=== PATIENT | male | born 1960 | race American Indian/Alaskan Native ===

== ENCOUNTER 2022-06-12 16:40 | Inpatient (IN) | payer MEDICARE ==
[2022-06-12 18:58] LABS: Basophils # (Auto) 0.1 K/mm3 (0.0-0.1); Basophils % (Auto) 1.4 % (0.0-1.8); Eosinophils # (Auto) 0.2 K/mm3 (0.0-0.4); Eosinophils % (Auto) 4.2 % (0.0-4.3); Hematocrit 22.9 % (35.5-45.6); Hemoglobin 7.9 gm/dl (11.8-15.2); Lymphocytes # (Auto) 1.4 K/mm3 (1.2-5.4); Lymphocytes % (Auto) 27.7 % (13.4-35.0); Mean Corpuscular HGB Conc 34 % (32-34); Mean Corpuscular Volume 91 fl (84-94); Monocytes # (Auto) 0.3 K/mm3 (0.0-0.8); Monocytes % (Auto) 5.3 % (0.0-7.3); Platelet Count 210 K/mm3 (140-440); Red Blood Count 2.52 M/mm3 (3.65-5.03); Red Cell Distribution Width 17.9 % (13.2-15.2)
--- NOTE | 2022-06-12 19:14 | Emergency Department Report ---
ED General Adult HPI - General Chief complaint: Weakness Stated complaint: GENERAL WEAKNESS/LOW HEMOGLOBIN Time Seen by Provider: 06/12/22 18:48 Source: patient, EMS (Verbal report received from emergency medical services. EMS documentation not available at time of chart dictation ), RN notes reviewed, old records reviewed Mode of arrival: Stretcher Limitations: Physical Limitation - History of Present Illness Initial comments: The patient was evaluated in the emergency department for symptoms described in the history of present illness. He/she was evaluated in the context of the global COVID-19 pandemic, which necessitated consideration that the patient might be at risk for infection with the virus that causes COVID-19. Institutional protocols and algorithms that pertain to the evaluation of patients at risk for COVID-19 are in a state of rapid change based on information released by regulatory bodies including the CDC and federal and community health systems organizations. These policies and algorithms were followed during the patient's care in the emergency department. Please note that these policies, procedures and recommendations changed on a rapid basis. Nephrology: Dr. Rodriguez This is a 62-year-old gentleman with a history of end-stage renal disease on home hemodialysis, left upper extremity fistula, triple-vessel CABG, PAD, stroke, and chronic warfarin therapy. He presents to the ER today with multiple complaints, including abdominal cramping, black/dark stool, possible GI bleed, shortness of breath, malaise, fatigue, and report of his left upper extremity hemodialysis access fistula working improperly. No headache or neck pain. No chest pain. No vomiting. No diarrhea. No hematemesis. Produces scant urine. Reports compliance with his medications. -: Gradual, days(s) Consistency: constant Improves with: rest Worsens with: movement - Related Data Home Medications Medication Instructions Recorded Confirmed Last Taken Cinacalcet HCl [Sensipar] 60 mg PO DAILY 03/09/22 03/09/22 03/07/22 Clopidogrel [Plavix] 75 mg PO QDAY 03/09/22 03/09/22 Unknown Diclofenac 1% [Diclofenac 1% 2 gm TP QDAY 03/09/22 03/09/22 Unknown topical gel] Losartan [Cozaar] 100 mg PO BID 03/09/22 03/09/22 03/07/22 NIFEdipine [Nifedipine ER] 90 mg PO DAILY 03/09/22 03/09/22 03/07/22 Sevelamer Carbonate [Renvela] 800 mg PO TIDWM 03/09/22 03/09/22 03/07/22 Warfarin [Coumadin] 3.75 mg PO 2XW 03/09/22 03/09/22 Unknown Warfarin [Coumadin] 7.5 mg PO 5XW 03/09/22 03/09/22 03/07/22 labetaloL [Labetalol 200mg TAB] 200 mg PO BID 03/09/22 03/09/22 Unknown traMADoL [Ultram 50 MG tab] 50 mg PO Q6HR PRN 03/09/22 03/09/22 Unknown Previous Rx's Medication Instructions Recorded Last Taken Type Clopidogrel [Plavix] 75 mg PO QDAY tablet 03/10/22 Unknown Rx Gabapentin 300 mg PO TID capsule 03/10/22 Unknown Rx Losartan [Cozaar] 100 mg PO QDAY tablet 03/10/22 Unknown Rx NIFEdipine XL [Procardia Xl] 90 mg PO QDAY tablet 03/10/22 Unknown Rx Sevelamer Carbonate [Renvela] 2,400 mg PO AC tablet 03/10/22 Unknown Rx Warfarin [Coumadin] 7.5 mg PO ONCE@1700 tablet 03/10/22 Unknown Rx carvediloL [Coreg] 12.5 mg PO BID 30 Days #60 tablet 03/10/22 Unknown Rx Allergies Allergy/AdvReac Type Severity Reaction Status Date / Time Penicillins Allergy Hives Verified 03/08/22 17:44 ED Review of Systems ROS: Stated complaint: GENERAL WEAKNESS/LOW HEMOGLOBIN Other details as noted in HPI Constitutional: malaise. denies: fever Eyes: denies: eye discharge ENT: congestion Respiratory: shortness of breath, SOB with exertion, SOB at rest Cardiovascular: edema. denies: chest pain Gastrointestinal: as per HPI, melena. denies: hematemesis, hematochezia Genitourinary: denies: dysuria Musculoskeletal: denies: back pain Neurological: weakness Hematological/Lymphatic: denies: easy bleeding ED Past Medical Hx - Past Medical History Hx Hypertension: Yes Hx CVA: Yes Hx Heart Attack/AMI: Yes Hx Congestive Heart Failure: Yes Hx Renal Disease: Yes (peritoneal) - Surgical History Hx Open Heart Surgery: Yes (CABG) - Social History Smoking Status: Never Smoker - Medications Home Medications: Home Medications Medication Instructions Recorded Confirmed Last Taken Type Cinacalcet HCl [Sensipar] 60 mg PO DAILY 03/09/22 03/09/22 03/07/22 History Clopidogrel [Plavix] 75 mg PO QDAY 03/09/22 03/09/22 Unknown History Diclofenac 1% [Diclofenac 1% 2 gm TP QDAY 03/09/22 03/09/22 Unknown History topical gel] Losartan [Cozaar] 100 mg PO BID 03/09/22 03/09/22 03/07/22 History NIFEdipine [Nifedipine ER] 90 mg PO DAILY 03/09/22 03/09/22 03/07/22 History Sevelamer Carbonate [Renvela] 800 mg PO TIDWM 03/09/22 03/09/22 03/07/22 History Warfarin [Coumadin] 3.75 mg PO 2XW 03/09/22 03/09/22 Unknown History Warfarin [Coumadin] 7.5 mg PO 5XW 03/09/22 03/09/22 03/07/22 History labetaloL [Labetalol 200mg TAB] 200 mg PO BID 03/09/22 03/09/22 Unknown History traMADoL [Ultram 50 MG tab] 50 mg PO Q6HR PRN 03/09/22 03/09/22 Unknown History Clopidogrel [Plavix] 75 mg PO QDAY tablet 03/10/22 Unknown Rx Gabapentin 300 mg PO TID capsule 03/10/22 Unknown Rx Losartan [Cozaar] 100 mg PO QDAY tablet 03/10/22 Unknown Rx NIFEdipine XL [Procardia Xl] 90 mg PO QDAY tablet 03/10/22 Unknown Rx Sevelamer Carbonate [Renvela] 2,400 mg PO AC tablet 03/10/22 Unknown Rx Warfarin [Coumadin] 7.5 mg PO ONCE@1700 tablet 03/10/22 Unknown Rx carvediloL [Coreg] 12.5 mg PO BID 30 Days #60 tablet 03/10/22 Unknown Rx ED Physical Exam - General Limitations: Physical Limitation General appearance: alert, in no apparent distress - Head Head exam: Present: atraumatic, normocephalic - Eye Eye exam: Present: normal appearance, EOMI. Absent: nystagmus - ENT ENT exam: Present: normal exam, normal orophraynx, mucous membranes moist, normal external ear exam - Neck Neck exam: Present: normal inspection, full ROM. Absent: tenderness, meningismus - Respiratory Respiratory exam: Present: rales (Very faint rales are appreciated). Absent: respiratory distress - Cardiovascular Cardiovascular Exam: Present: regular rate, normal rhythm, systolic murmur, JVD. Absent: bradycardia, tachycardia, irregular rhythm, diastolic murmur, rubs, gallop - GI/Abdominal GI/Abdominal exam: Present: soft. Absent: distended, tenderness, guarding, rebound, rigid, pulsatile mass - Rectal Rectal exam: Present: normal inspection, normal rectal tone, other (Patient consents for digital rectal examination. No gross blood noted on rectal examination. Chaperoned by nurse Nazanin Mariscal). Absent: black stool, bloody stool, fecal impaction - Extremities Exam Extremities exam: Present: normal inspection (There is a left upper extremity fistula appreciated, with an appropriate thrill, without redness, pus or streaking), full ROM, other (2+ pulses noted in the bilateral upper and lower extremities. There is no palpable cord. negative Homans sign. Muscular compartments are soft. The pelvis is stable.). Absent: calf tenderness - Back Exam Back exam: Present: normal inspection. Absent: tenderness, CVA tenderness (R), CVA tenderness (L), paraspinal tenderness, vertebral tenderness - Neurological Exam Neurological exam: Present: alert, oriented X3, other (There is no facial droop. The tongue is midline. EOMI. Sensation intact to light touch in 4 extremities. 5/5 strength in 4 extremities) - Psychiatric Psychiatric exam: Present: flat affect - Skin Skin exam: Present: warm, dry, intact, normal color. Absent: rash ED Course Vital Signs 06/12/22 17:24 Temperature 98.8 F Pulse Rate 85 Respiratory 18 Rate Blood Pressure 165/82 [Left] O2 Sat by Pulse 97 Oximetry - Reevaluation(s) Reevaluation #1: 06/12/22 20:11 Differential diagnosis, including not limited to: Anemia, thrombocytopenia, GI bleed, azotemia, uremia, metabolic acidosis, congestive heart failure/fluid overload Fistula malfunction Electrolyte derangement, AAA, retroperitoneal hematoma Assessment and plan: 62-year-old gentleman with multiple complex past medical history and issues, presenting with multiple complaints. Complaining of black stool. He is also short of breath. He is found to have slightly worse anemia than baseline. No blood on rectal examination. Chest x-ray shows mild congestive heart failure/fluid overload. Also found to have essentially baseline renal function labs. Coagulation parameters pending. Administer high-dose Lasix, administer Protonix, and administer desmopressin. Obtain noncontrast CT scan of the abdomen pelvis. We will discussed with GI and nephrology on-call. Anticipate admission to the medical service. Left upper extremity fistula with an appropriate thrill, and a benign and unremarkable external appearance. Do not have access to hemodialysis access studies at this time. Defer to inpatient team to further evaluate. Patient will likely require admission. Reevaluation #2: 06/12/22 21:34 Patient resting comfortably in no acute distress. CT scan abdomen pelvis shows no evidence of retroperitoneal hematoma, or AAA. Hospital physicianAngel to admit to IMS - Consultations Consultation #1: 06/12/22 20:25 Discussed the patient's history, physical, laboratory studies and clinical impression with GI on-call, Dr. Mario. He is in agreement with the plan of care, and GI will follow in consultation. Consultation #2: 06/12/22 20:31 I discussed the patient's history, physical, laboratory studies and imaging studies and clinical impression with nephrology on-call, Dr. Avalos, she is in agreement with the plan of care, and her group will follow in consultation ED Medical Decision Making - Lab Data Result diagrams: 06/12/22 18:47 06/12/22 18:47 Vital Signs 06/12/22 17:24 Temperature 98.8 F Pulse Rate 85 Respiratory 18 Rate Blood Pressure 165/82 [Left] O2 Sat by Pulse 97 Oximetry Lab Results 06/12/22 06/12/22 Range/Units 18:47 18:47 WBC 5.0 (4.5-11.0) K/mm3 RBC 2.52 L (3.65-5.03) M/mm3 Hgb 7.9 L (11.8-15.2) gm/dl Hct 22.9 L (35.5-45.6) % MCV 91 (84-94) fl MCH 31 (28-32) pg MCHC 34 (32-34) % RDW 17.9 H (13.2-15.2) % Plt Count 210 (140-440) K/mm3 Lymph % (Auto) 27.7 (13.4-35.0) % [place] % (Auto) 5.3 (0.0-7.3) % Eos % (Auto) 4.2 (0.0-4.3) % Baso % (Auto) 1.4 (0.0-1.8) % Lymph # (Auto) 1.4 (1.2-5.4) K/mm3 [place] # (Auto) 0.3 (0.0-0.8) K/mm3 Eos # (Auto) 0.2 (0.0-0.4) K/mm3 Baso # (Auto) 0.1 (0.0-0.1) K/mm3 Seg Neutrophils % 61.4 (40.0-70.0) % Seg Neutrophils # 3.1 (1.8-7.7) K/mm3 Sodium 141 (137-145) mmol/L Potassium 3.4 L (3.6-5.0) mmol/L Chloride 100.9 (98-107) mmol/L Carbon Dioxide 22 (22-30) mmol/L Anion Gap 22 mmol/L BUN 55 H (9-20) mg/dL Creatinine 10.6 H (0.8-1.3) mg/dL Estimated GFR 6 ml/min BUN/Creatinine Ratio 5 % Glucose 88 (75-100) mg/dL Calcium 8.3 L (8.4-10.2) mg/dL Total Bilirubin 0.50 (0.1-1.2) mg/dL AST 11 (5-40) units/L ALT 10 (7-56) units/L Alkaline Phosphatase 125 (35-129) units/L Total Protein 6.4 (6.3-8.2) g/dL Albumin 4.4 (3.9-5) g/dL Albumin/Globulin Ratio 2.2 % - EKG Data -: EKG Interpreted by In EKG shows normal: sinus rhythm Rate: normal - EKG Data 06/12/22 20:44 The EKG is interpreted at 20: 35 Sinus rhythm, 83 bpm. Normal axis, normal P wave axis, left ventricular hypertrophy, PVC, first-degree AV block, motion artifact. No endorsement of chest pain. This is an abnormal EKG. This is not a STEMI - Radiology Data Radiology results: pending, report reviewed, image reviewed CHEST 1 VIEW 06/12/2022 6:42 PM INDICATION / CLINICAL INFORMATION: esrd. COMPARISON: 03/08/2022 FINDINGS: SUPPORT DEVICES: None. HEART / MEDIASTINUM: Cardiomegaly LUNGS / PLEURA: Mild pulmonary vascular indistinctness. No pneumothorax. ADDITIONAL FINDINGS: No significant additional findings. IMPRESSION: 1. Cardiomegaly and mild pulmonary edema. Signer Name: Vaughn Flannery DO Signed: 06/12/2022 6:47 PM Workstation Name: [facility] CT ABDOMEN AND PELVIS WITHOUT CONTRAST INDICATION / CLINICAL INFORMATION: Abdominal cramping, AAA, history of GI bleed, cou. TECHNIQUE: Axial CT images were obtained through the abdomen and pelvis without IV contrast. All CT scans at this location are performed using CT dose reduction for ALARA by means of automated exposure control. COMPARISON: CT of the chest dated 06/30/2012 FINDINGS: LOWER CHEST: Trace bilateral, right greater than left pleural effusi ons. There is bibasilar atelectasis. There is prominence of the secondary lobules suggesting pulmonary edema. AORTA / ARTERIES: Severe atherosclerotic calcification without acute abnormality. There is infrarenal endovascular stent terminating as bilateral common iliac stents. IVC / VEINS: No significant abnormality. LYMPH NODES: No significant adenopathy. COLON: Diverticulosis without acute inflammation. APPENDIX: Not visualized. STOMACH / SMALL BOWEL: There is mild duodenal wall thickening with periduodenal inflammation. PERITONEUM: No free fluid. No free air. No fluid collection. LIVER: No significant abnormality. GALLBLADDER: Increased attenuation suggesting sludge versus cholelithiasis. BILE DUCTS: No significant abnormality. PANCREAS: No significant abnormality. SPLEEN: No significant abnormality. ADRENALS: No significant abnormality. RIGHT KIDNEY / URETER: Atrophic and polycystic kidney. No hydronephrosis. LEFT KIDNEY / URETER: Atrophic and polycystic kidney. No hydronephrosis. There is a right lower quadrant transplanted kidney. There are multiple punctate nonobstructing stones within the transplanted kidney, measuring up to 0.3 cm. URINARY BLADDER: No significant abnormality. REPRODUCTIVE ORGANS: No significant abnormality. SKELETAL SYSTEM: No significant abnormality. ADDITIONAL FINDINGS: None. IMPRESSION: 1. Mild duodenal wall thickening with periduodenal inflammation suggesting duodenitis. 2. Additional findings above. Signer Name: Vaughn Marshall DO Prudencio Signed: 06/12/2022 8:08 PM Workstation Name: [facility] [employer] Critical Care Time: Yes Critical care time in (mins) excluding proc time.: 35 Critical care attestation.: If time is entered above; I have spent that time in minutes in the direct care of this critically ill patient, excluding procedure time. ED Disposition Clinical Impression: Dyspnea on exertion, Shortness of breath, Pulmonary vascular congestion, End- stage renal disease on hemodialysis, Abdominal discomfort, Anticoagulated, Anemia, Dark stools Disposition: 09 ADMITTED INPATIENT Is pt being admited?: Yes Does the pt Need Aspirin: No Condition: Good Referrals: BEVELRY SONI [Other] - 3-5 Days
--- NOTE | 2022-06-12 19:51 | XRay Report ---
CHEST 1 VIEW 06/12/2022 6:42 PM INDICATION / CLINICAL INFORMATION: esrd. COMPARISON: 03/08/2022 FINDINGS: SUPPORT DEVICES: None. HEART / MEDIASTINUM: Cardiomegaly LUNGS / PLEURA: Mild pulmonary vascular indistinctness. No pneumothorax. ADDITIONAL FINDINGS: No significant additional findings. IMPRESSION: 1. Cardiomegaly and mild pulmonary edema. Signer Name: Vaughn Flannery DO Signed: 06/12/2022 7:47 PM Workstation Name: [id number]
[2022-06-12 19:54] LABS: Albumin 4.4 g/dL (3.9-5); Calcium 8.3 mg/dL (8.4-10.2)
[2022-06-12] MEDS ORDERED: FUROSEMIDE 40 MG/4 ML INJ IV ONE (20:07)
[2022-06-12] MEDS ORDERED: PANTOPRAZOLE 40 MG INJ IV ONE (20:07)
[2022-06-12] MEDS ORDERED: SODIUM CHLORIDE 0.9% IV ONE (20:07)
[2022-06-12] MEDS ORDERED: DESMOPRESSIN ACETATE IV ONE (20:07)
[2022-06-12 20:13] LABS: INR 3.04 (0.87-1.13)
[2022-06-12 20:14] LABS: Partial Thromboplastin Time 45.9 Sec. (24.2-36.6)
[2022-06-12] MEDS ORDERED: SODIUM CHLORIDE 0.9% 500 ML 500 ML IV ONE (20:14)
--- NOTE | 2022-06-12 21:12 | Cat Scan Report ---
CT ABDOMEN AND PELVIS WITHOUT CONTRAST INDICATION / CLINICAL INFORMATION: Abdominal cramping, AAA, history of GI bleed, cou. TECHNIQUE: Axial CT images were obtained through the abdomen and pelvis without IV contrast. All CT scans at this location are performed using CT dose reduction for ALARA by means of automated exposure control. COMPARISON: CT of the chest dated 06/30/2012 FINDINGS: LOWER CHEST: Trace bilateral, right greater than left pleural effusions. There is bibasilar atelectas is. There is prominence of the secondary lobules suggesting pulmonary edema. AORTA / ARTERIES: Severe atherosclerotic calcification without acute abnormality. There is infrarenal endovascular stent terminating as bilateral common iliac stents. IVC / VEINS: No significant abnormality. LYMPH NODES: No significant adenopathy. COLON: Diverticulosis without acute inflammation. APPENDIX: Not visualized. STOMACH / SMALL BOWEL: There is mild duodenal wall thickening with periduodenal inflammation. PERITONEUM: No free fluid. No free air. No fluid collection. LIVER: No significant abnormality. GALLBLADDER: Increased attenuation suggesting sludge versus cholelithiasis. BILE DUCTS: No significant abnormality. PANCREAS: No significant abnormality. SPLEEN: No significant abnormality. ADRENALS: No significant abnormality. RIGHT KIDNEY / URETER: Atrophic and polycystic kidney. No hydronephrosis. LEFT KIDNEY / URETER: Atrophic and polycystic kidney. No hydronephrosis. There is a right lower quadrant transplanted kidney. There are multiple punctate nonobstructing stone s within the transplanted kidney, measuring up to 0.3 cm. URINARY BLADDER: No significant abnormality. REPRODUCTIVE ORGANS: No significant abnormality. SKELETAL SYSTEM: No significant abnormality. ADDITIONAL FINDINGS: None. IMPRESSION: 1. Mild duodenal wall thickening with periduodenal inflammation suggesting duodenitis. 2. Additional findings above. Signer Name: Vaughn Flannery DO Signed: 06/12/2022 9:08 PM Workstation Name: [id number]
[2022-06-12] MEDS ORDERED: ONDANSETRON 4 MG/2 ML INJ IV PRN (22:25)
[2022-06-12] MEDS ORDERED: MORPHINE 4 MG/1 ML INJ IV PRN (22:25)
[2022-06-12] MEDS ORDERED: ACETAMINOPHEN 325 MG TAB PO PRN (22:25)
--- NOTE | 2022-06-12 22:35 | History and Physical Report ---
History of Present Illness Date of examination: 06/12/22 Date of admission: 06/12/22 Chief complaint: Generalized weakness History of present illness: 62-year-old gentleman with a history of end-stage renal disease on home hemodialysis, left upper extremity fistula, triple-vessel CABG, PAD, stroke, and chronic warfarin therapy was brought to the ER today with multiple complaints, including abdominal cramping, black/dark stool, possible GI bleed, shortness of breath, malaise, fatigue, and report of his left upper extremity hemodialysis access fistula working improperly. In the emergency room patient is found to have a hemoglobin of 7.9 and hematocrit 22.9. PT 36.3 INR 3.04, BUN 55 creatinine 10.6, potassium 3.4 and proBNP [id number]. Chest x-ray shows mild congestive heart failure/fluid overload. Discussed the patient's history, physical, laboratory studies and clinical impression with GI on-call, Dr. Mario and nephrology for evaluation and treatment Past History Past Medical History: acute [place], ESRD, heart failure, hypertension, stroke, other Past Surgical History: CABG Social history: no significant social history Family history: hypertension (Peritoneal dialysis) Medications and Allergies Allergies Allergy/AdvReac Type Severity Reaction Status Date / Time Penicillins Allergy Hives Verified 03/08/22 17:44 Home Medications Medication Instructions Recorded Confirmed Last Taken Type Cinacalcet HCl [Sensipar] 60 mg PO DAILY 03/09/22 03/09/22 03/07/22 History Clopidogrel [Plavix] 75 mg PO QDAY 03/09/22 03/09/22 Unknown History Diclofenac 1% [Diclofenac 1% 2 gm TP QDAY 03/09/22 03/09/22 Unknown History topical gel] Losartan [Cozaar] 100 mg PO BID 03/09/22 03/09/22 03/07/22 History NIFEdipine [Nifedipine ER] 90 mg PO DAILY 03/09/22 03/09/22 03/07/22 History Sevelamer Carbonate [Renvela] 800 mg PO TIDWM 03/09/22 03/09/22 03/07/22 History Warfarin [Coumadin] 3.75 mg PO 2XW 03/09/22 03/09/22 Unknown History Warfarin [Coumadin] 7.5 mg PO 5XW 03/09/22 03/09/22 03/07/22 History labetaloL [Labetalol 200mg TAB] 200 mg PO BID 03/09/22 03/09/22 Unknown History traMADoL [Ultram 50 MG tab] 50 mg PO Q6HR PRN 03/09/22 03/09/22 Unknown History Clopidogrel [Plavix] 75 mg PO QDAY tablet 03/10/22 Unknown Rx Gabapentin 300 mg PO TID capsule 03/10/22 Unknown Rx Losartan [Cozaar] 100 mg PO QDAY tablet 03/10/22 Unknown Rx NIFEdipine XL [Procardia Xl] 90 mg PO QDAY tablet 03/10/22 Unknown Rx Sevelamer Carbonate [Renvela] 2,400 mg PO AC tablet 03/10/22 Unknown Rx Warfarin [Coumadin] 7.5 mg PO ONCE@1700 tablet 03/10/22 Unknown Rx carvediloL [Coreg] 12.5 mg PO BID 30 Days #60 tablet 03/10/22 Unknown Rx Active Meds: Active Medications Acetaminophen (Acetaminophen 325 Mg Tab) 650 mg PO Q4H PRN PRN Reason: Pain MILD(1-3)/Fever >100.5/[place] Carvedilol (Carvedilol 12.5 Mg Tab) 12.5 mg PO BID ROMY Gabapentin (Gabapentin 300 Mg Cap) 300 mg PO TID ROMY Labetalol HCl (Labetalol 200 Mg Tab) 200 mg PO BID ROMY Losartan Potassium (Losartan 50 Mg Tab) 100 mg PO QDAY [facility] Miscellaneous Medication (Cinacalcet Hcl [Sensipar]) 60 mg PO DAILY [facility] Miscellaneous Medication (Nifedipine [Nifedipine Er]) 90 mg PO DAILY ROMY Morphine Sulfate (Morphine 2 Mg/1 Ml Inj) 2 mg IV Q4H PRN PRN Reason: Pain, Moderate (4-6) Morphine Sulfate (Morphine 4 Mg/1 Ml Inj) 4 mg IV Q4H PRN PRN Reason: Pain , Severe (7-10) Ondansetron HCl (Ondansetron 4 Mg/2 Ml Inj) 4 mg IV Q8H PRN PRN Reason: Nausea And Vomiting Pantoprazole Sodium (Pantoprazole 40 Mg Inj) 40 mg IV BID ROMY Sevelamer Carbonate (Sevelamer Carbonate 800 Mg Tab) 800 mg PO TIDWM [facility]Y Sodium Chloride (Sodium Chloride 0.9% 10 Ml Flush Syringe) 10 ml IV BID ROMY Sodium Chloride (Sodium Chloride 0.9% 10 Ml Flush Syringe) 10 ml IV PRN PRN PRN Reason: LINE FLUSH Review of Systems Constitutional: fatigue (Melenaabdominal cramping, black/dark stool, possible GI bleed, shortness of breath, malaise, fatigue, and report of his left upper extremity hemodialysis access fistula working improperly.), weakness, malaise, other (Low hemoglobin) Exam - Constitutional Vitals: Temp Pulse Resp BP Pulse Ox 98.8 F 85 18 165/82 97 06/12/22 17:24 06/12/22 17:24 06/12/22 17:24 06/12/22 17:24 06/12/22 17:24 General appearance: Present: no acute distress, well-nourished - EENT Eyes: Present: PERRL ENT: hearing intact, clear oral mucosa - Neck Neck: Present: supple, normal ROM - Respiratory Respiratory effort: normal Respiratory: bilateral: CTA - Cardiovascular Heart Sounds: Present: S1 & S2. Absent: rub, click - Extremities Extremities: pulses symmetrical, No edema Peripheral Pulses: within normal limits - Abdominal General gastrointestinal: Present: soft, non-tender, non-distended, normal bowel sounds Male genitourinary: Present: normal - Integumentary Integumentary: Present: clear, warm, dry - Musculoskeletal Musculoskeletal: gait normal, strength equal bilaterally - Psychiatric Psychiatric: appropriate mood/affect, intact judgment & insight - Neurologic Neurologic: CNII-XII intact, moves all extremities Results - Labs CBC & Chem 7: 06/12/22 18:47 06/12/22 18:47 Labs: Laboratory Last Values WBC 5.0 K/mm3 (4.5-11.0) 06/12/22 18:47 RBC 2.52 M/mm3 (3.65-5.03) L 06/12/22 18:47 Hgb 7.9 gm/dl (11.8-15.2) L 06/12/22 18:47 Hct 22.9 % (35.5-45.6) L 06/12/22 18:47 MCV 91 fl (84-94) 06/12/22 18:47 MCH 31 pg (28-32) 06/12/22 18:47 MCHC 34 % (32-34) 06/12/22 18:47 RDW 17.9 % (13.2-15.2) H 06/12/22 18:47 Plt Count 210 K/mm3 (140-440) 06/12/22 18:47 Lymph % (Auto) 27.7 % (13.4-35.0) 06/12/22 18:47 [place] % (Auto) 5.3 % (0.0-7.3) 06/12/22 18:47 Eos % (Auto) 4.2 % (0.0-4.3) 06/12/22 18:47 Baso % (Auto) 1.4 % (0.0-1.8) 06/12/22 18:47 Lymph # (Auto) 1.4 K/mm3 (1.2-5.4) 06/12/22 18:47 [place] # (Auto) 0.3 K/mm3 (0.0-0.8) 06/12/22 18:47 Eos # (Auto) 0.2 K/mm3 (0.0-0.4) 06/12/22 18:47 Baso # (Auto) 0.1 K/mm3 (0.0-0.1) 06/12/22 18:47 Seg Neutrophils % 61.4 % (40.0-70.0) 06/12/22 18:47 Seg Neutrophils # 3.1 K/mm3 (1.8-7.7) 06/12/22 18:47 PT 36.3 Sec. (12.2-14.9) H 06/12/22 19:43 INR 3.04 (0.87-1.13) H 06/12/22 19:43 APTT 45.9 Sec. (24.2-36.6) H 06/12/22 19:43 Sodium 141 mmol/L (137-145) 06/12/22 18:47 Potassium 3.4 mmol/L (3.6-5.0) L 06/12/22 18:47 Chloride 100.9 mmol/L (98-107) 06/12/22 18:47 Carbon Dioxide 22 mmol/L (22-30) 06/12/22 18:47 Anion Gap 22 mmol/L 06/12/22 18:47 BUN 55 mg/dL (9-20) H 06/12/22 18:47 Creatinine 10.6 mg/dL (0.8-1.3) H 06/12/22 18:47 Estimated GFR 6 ml/min 06/12/22 18:47 BUN/Creatinine Ratio 5 % 06/12/22 18:47 Glucose 88 mg/dL (75-100) 06/12/22 18:47 Calcium 8.3 mg/dL (8.4-10.2) L 06/12/22 18:47 Total Bilirubin 0.50 mg/dL (0.1-1.2) 06/12/22 18:47 AST 11 units/L (5-40) 06/12/22 18:47 ALT 10 units/L (7-56) 06/12/22 18:47 Alkaline Phosphatase 125 units/L (35-129) 06/12/22 18:47 NT-Pro-B Natriuret Pep 80395 pg/mL (0-900) H 06/12/22 18:46 Total Protein 6.4 g/dL (6.3-8.2) 06/12/22 18:47 Albumin 4.4 g/dL (3.9-5) 06/12/22 18:47 Albumin/Globulin Ratio 2.2 % 06/12/22 18:47 Blood Type A POSITIVE 06/12/22 19:50 Antibody Screen Negative 06/12/22 19:50 Crossmatch See Detail 06/12/22 19:50 Microbiology: Microbiology 06/12/22 20:00 Stool - Stool Aspirate Stool Occult Blood ([place]) - Final - Imaging and Cardiology Chest x-ray: report reviewed CT scan - abdomen: report reviewed Assessment and Plan VTE prophylaxis?: Mechanical Plan of care discussed with patient/family: Yes - Patient Problems (1) Dark stools Current Visit: Yes Status: Acute Plan to address problem: Admit the patient to the medical telemetry. NPO. Protonix 40 mg IV every 12 hours. Will consult GI for evaluation. Recheck CBC BMP in the morning. Continue home medication (2) Dyspnea on exertion Current Visit: Yes Status: Acute Plan to address problem: Oxygen via nasal cannula 3 L/min. DuoNeb via nebulizer every 4 hours. Albuterol via nebulizer every 4 hours as needed. Continue the home medication (3) Pulmonary vascular congestion Current Visit: Yes Status: Acute Plan to address problem: Oxygen via nasal cannula 3 L/min. DuoNeb via nebulizer every 4 hours. Albute rol via nebulizer every 4 hours as needed. Continue the home medication. We will consult nephrology for dialysis (4) End-stage renal disease on hemodialysis Current Visit: Yes Status: Chronic Plan to address problem: Avoid nephrotoxic drug. Renally dose medication. Reconsult nephrology for dialysis. Recheck BMP in the morning (5) CVA (cerebral vascular accident) Current Visit: No Status: Acute Plan to address problem: Stable. We continue the home medication. Outpatient follow-up with neurology (6) Hx of CABG Current Visit: No Status: Acute Plan to address problem: Stable. We will continue the home cardiac medication outpatient follow-up with cardiology (7) Hypertension Current Visit: No Status: Chronic Plan to address problem: Coreg 12.5 mg p.o. twice daily. Labetalol 200 mg p.o. twice daily. Losartan 100 mg p.o. daily (8) Anemia Current Visit: Yes Status: Acute Plan to address problem: Protonix 40 mg IV every 12 hours. Will consult GI for evaluation. Recheck CBC in the morning if needed will transfuse the patient (9) DVT prophylaxis Current Visit: No Status: Acute Plan to address problem: SCD for DVT prophylaxis. Protonix 40 mg IV every 12 hours for GI prophylaxis. Patient is a full code
[2022-06-13] MEDS: carvediloL 12.5 MG TAB PO SCH ×2 (09:37→22:04)
[2022-06-13] MEDS: LOSARTAN 50 MG TAB PO SCH (09:48)
[2022-06-13] MEDS: SEVELAMER CARBONATE 800 MG TAB PO SCH ×3 (09:48→18:12)
[2022-06-13] MEDS: CINACALCET 30 MG TAB PO SCH (09:48)
[2022-06-13] MEDS: GABAPENTIN 300 MG CAP PO SCH ×3 (09:48→19:54)
[2022-06-13] MEDS: NIFEdipine XL 90 MG TAB PO SCH (09:49)
--- NOTE | 2022-06-13 09:50 | Gastroenterology Consultation ---
History of Present Illness - Reason for Consult Consult date: 06/13/22 Dark Stools Requesting physician: GENEVA RASHEED - History of Present Illness The patient is a 62 yo male admitted with A on C anemia, dark stools, and missed HD. He was admitted here recently for CHF flare/volume overload, and was noted to have anemia of chronic disease as well. His hgb is currently 7.4 and was 8.8 last admit. He says the dark stools are intermittent, and there is no N/ V/severe abdominal pain/hematemesis. He has no hx of PUD, and has never had an EGD or colonoscopy. He has a hx of a kidney transplant in 2003 but this eventually failed, and has been back on HD since 2019. He was being set up for home HD, but last session was Wednesday, and he has had trouble with his AVG working. He is on dual coumadin and plavix, but denies NSAIDs. He has mild intermittent indigestion, but does not take a daily med for this. It is unknown if he takes daily epogen or procrit. Past History Past Medical History: acute [place], ESRD, heart failure, hypertension, stroke, other Past Surgical History: CABG, Other (Kidney transplant (2003; failed 2018)) Social history: no significant social history, lives with family. denies: alcohol abuse, prescription drug abuse Family history: hypertension (Peritoneal dialysis) Medications and Allergies Allergies Allergy/AdvReac Type Severity Reaction Status Date / Time Penicillins Allergy Hives Verified 03/08/22 17:44 Home Medications Medication Instructions Recorded Confirmed Last Taken Type Cinacalcet HCl [Sensipar] 60 mg PO DAILY 03/09/22 03/09/22 03/07/22 History Clopidogrel [Plavix] 75 mg PO QDAY 03/09/22 03/09/22 Unknown History Diclofenac 1% [Diclofenac 1% 2 gm TP QDAY 03/09/22 03/09/22 Unknown History topical gel] Losartan [Cozaar] 100 mg PO BID 03/09/22 03/09/22 03/07/22 History NIFEdipine [Nifedipine ER] 90 mg PO DAILY 03/09/22 03/09/22 03/07/22 History Sevelamer Carbonate [Renvela] 800 mg PO TIDWM 03/09/22 03/09/22 03/07/22 History Warfarin [Coumadin] 3.75 mg PO 2XW 03/09/22 03/09/22 Unknown History Warfarin [Coumadin] 7.5 mg PO 5XW 03/09/22 03/09/22 03/07/22 History labetaloL [Labetalol 200mg TAB] 200 mg PO BID 03/09/22 03/09/22 Unknown History traMADoL [Ultram 50 MG tab] 50 mg PO Q6HR PRN 03/09/22 03/09/22 Unknown History Clopidogrel [Plavix] 75 mg PO QDAY tablet 03/10/22 Unknown Rx Gabapentin 300 mg PO TID capsule 03/10/22 Unknown Rx Losartan [Cozaar] 100 mg PO QDAY tablet 03/10/22 Unknown Rx NIFEdipine XL [Procardia Xl] 90 mg PO QDAY tablet 03/10/22 Unknown Rx Sevelamer Carbonate [Renvela] 2,400 mg PO AC tablet 03/10/22 Unknown Rx Warfarin [Coumadin] 7.5 mg PO ONCE@1700 tablet 03/10/22 Unknown Rx carvediloL [Coreg] 12.5 mg PO BID 30 Days #60 tablet 03/10/22 Unknown Rx Active Meds: Active Medications Acetaminophen (Acetaminophen 325 Mg Tab) 650 mg PO Q4H PRN PRN Reason: Pain MILD(1-3)/Fever >100.5/[place] Calcitriol (Calcitriol 0.25 Mcg Cap) 0.25 mcg PO QDAY [facility] Carvedilol (Carvedilol 12.5 Mg Tab) 12.5 mg PO BID ROMY Cinacalcet (Cinacalcet 30 Mg Tab) 60 mg PO QDAY [facility] Gabapentin (Gabapentin 300 Mg Cap) 300 mg PO TID ROMY Labetalol HCl (Labetalol 200 Mg Tab) 200 mg PO BID ROMY Losartan Potassium (Losartan 50 Mg Tab) 100 mg PO QDAY [facility] Morphine Sulfate (Morphine 2 Mg/1 Ml Inj) 2 mg IV Q4H PRN PRN Reason: Pain, Moderate (4-6) Morphine Sulfate (Morphine 4 Mg/1 Ml Inj) 4 mg IV Q4H PRN PRN Reason: Pain , Severe (7-10) Nifedipine (Nifedipine Xl 90 Mg Tab) 90 mg PO QDAY [facility] Ondansetron HCl (Ondansetron 4 Mg/2 Ml Inj) 4 mg IV Q8H PRN PRN Reason: Nausea And Vomiting Pantoprazole Sodium (Pantoprazole 40 Mg Inj) 40 mg IV BID ROMY Sevelamer Carbonate (Sevelamer Carbonate 800 Mg Tab) 800 mg PO TIDWM [facility] Sodium Chloride (Sodium Chloride 0.9% 10 Ml Flush Syringe) 10 ml IV BID ROMY Sodium Chloride (Sodium Chloride 0.9% 10 Ml Flush Syringe) 10 ml IV PRN PRN PRN Reason: LINE FLUSH I HAVE REVIEWED AND RECONCILED MEDICATIONS Review of Systems - Review of Systems All systems: negative (as noted in the HPI) Exam - Constitutional Vital Signs: Temp Pulse Resp BP Pulse Ox 98.3 F 86 18 189/103 99 06/13/22 09:32 06/13/22 09:32 06/13/22 09:32 06/13/22 09:32 06/13/22 09:32 General appearance: no acute distress - EENT Eyes: PERRL, EOM intact ENT: hearing intact, clear oral mucosa - Neck Neck: supple, normal ROM - Respiratory Respiratory effort: normal Respiratory: bilateral: CTA - Cardiovascular Rhythm: regular Heart Sounds: Present: S1 & S2 Extremities: no ischemia Extremity abnormal: edema (1+ pedal edema), other (AVG with thrill in LUE) - Gastrointestinal General gastrointestinal: Present: soft, non-tender, non-distended - Integumentary Integumentary: Present: clear, warm, dry - Neurologic Neurological: alert and oriented x3 - Labs CBC & Chem 7: 06/12/22 18:47 06/12/22 18:47 Lab Results: Laboratory Results - last 24 hr 06/12/22 06/12/22 06/12/22 18:46 18:47 18:47 WBC 5.0 RBC 2.52 L Hgb 7.9 L Hct 22.9 L MCV 91 MCH 31 MCHC 34 RDW 17.9 H Plt Count 210 Lymph % (Auto) 27.7 [place] % (Auto) 5.3 Eos % (Auto) 4.2 Baso % (Auto) 1.4 Lymph # (Auto) 1.4 [place] # (Auto) 0.3 Eos # (Auto) 0.2 Baso # (Auto) 0.1 Seg Neutrophils % 61.4 Seg Neutrophils # 3.1 PT INR APTT Sodium 141 Potassium 3.4 L Chloride 100.9 Carbon Dioxide 22 Anion Gap 22 BUN 55 H Creatinine 10.6 H Estimated GFR 6 BUN/Creatinine Ratio 5 Glucose 88 Calcium 8.3 L Total Bilirubin 0.50 AST 11 ALT 10 Alkaline Phosphatase 125 NT-Pro-B Natriuret Pep 78603 H Total Protein 6.4 Albumin 4.4 Albumin/Globulin Ratio 2.2 Blood Type Antibody Screen Crossmatch 06/12/22 06/12/22 19:43 19:50 WBC RBC Hgb Hct MCV MCH MCHC RDW Plt Count Lymph % (Auto) [place] % (Auto) Eos % (Auto) Baso % (Auto) Lymph # (Auto) [place] # (Auto) Eos # (Auto) Baso # (Auto) Seg Neutrophils % Seg Neutrophils # PT 36.3 H INR 3.04 H APTT 45.9 H Sodium Potassium Chloride Carbon Dioxide Anion Gap BUN Creatinine Estimated GFR BUN/Creatinine Ratio Glucose Calcium Total Bilirubin AST ALT Alkaline Phosphatase NT-Pro-B Natriuret Pep Total Protein Albumin Albumin/Globulin Ratio Blood Type A POSITIVE Antibody Screen Negative Crossmatch See Detail Assessment and Plan - Patient Problems (1) Symptomatic anemia Current Visit: Yes Status: Acute Plan to address problem: - I suspect anemia of chronic disease, but given the severity, he needs an EGD/colonoscopy. - He has significant cardiomyopathy (EF 30%), missed HD, and fluid overload, as well as coagulopathy from meds; will defer endoscopy at present. - Plan hold coumadin and ASA, resume HD here, and EGD/colon Wednesday if st abilized. - Transfuse as needed. - No gross blood loss or hematemesis; VSS; PO protonix is oK.
[2022-06-13] MEDS ORDERED: CINACALCET HCL 60 MG PO SCH (10:00)
[2022-06-13] MEDS ORDERED: NON-FORMULARY EACH (Nifedipine [Nifedipine Er] 90 MG Tablet.Er) PO SCH (10:00)
[2022-06-13] MEDS ORDERED: PANTOPRAZOLE 40 MG INJ IV SCH (10:00)
[2022-06-13] MEDS: MORPHINE 2 MG/1 ML INJ IV PRN ×2 (12:05→18:15)
[2022-06-13] MEDS: CALCITRIOL 0.25 MCG CAP PO SCH (12:06)
[2022-06-13] MEDS: PANTOPRAZOLE 40 MG TAB PO SCH (12:08)
[2022-06-13] MEDS ORDERED: SODIUM CHLORIDE 0.9% 100 ML IV PRN (13:12)
--- NOTE | 2022-06-13 13:12 | Consultation ---
History of Present Illness - Reason for Consult Consult date: 06/13/22 end stage renal disease - History of Present Illness Mr. Cochran is a 62yo with ESRD on home hemodialysis, CAD s/p CAB, PAD and CVA who presented to the ED with fatigue. He reports worsening fatigue and intermittent MORALES. He reports that he recently transferred from [facility] HD to home HD. Since change to home HD appx 1 month ago, he was unable to receive Micera for anemia management. He recently received Micera on Wednesday. He also reports that he is s/p fistulogram/angioplasty on Wednesday. However, he reports that on Wednesday, his dialysis physician [facility] was unable to cannulate his access. Past History Past Medical History: acute [place], ESRD, heart failure, hypertension, stroke, other Past Surgical History: CABG, Other (Kidney transplant (2003; failed 2018)) Social history: no significant social history, lives with family. denies: alcohol abuse, prescription drug abuse Family history: hypertension (Peritoneal dialysis) Medications and Allergies Allergies Allergy/AdvReac Type Severity Reaction Status Date / Time Penicillins Allergy Hives Verified 03/08/22 17:44 Home Medications Medication Instructions Recorded Confirmed Last Taken Type Cinacalcet HCl [Sensipar] 60 mg PO DAILY 03/09/22 03/09/22 03/07/22 History Clopidogrel [Plavix] 75 mg PO QDAY 03/09/22 03/09/22 Unknown History Diclofenac 1% [Diclofenac 1% 2 gm TP QDAY 03/09/22 03/09/22 Unknown History topical gel] Losartan [Cozaar] 100 mg PO BID 03/09/22 03/09/22 03/07/22 History NIFEdipine [Nifedipine ER] 90 mg PO DAILY 03/09/22 03/09/22 03/07/22 History Sevelamer Carbonate [Renvela] 800 mg PO TIDWM 03/09/22 03/09/22 03/07/22 History Warfarin [Coumadin] 3.75 mg PO 2XW 03/09/22 03/09/22 Unknown History Warfarin [Coumadin] 7.5 mg PO 5XW 03/09/22 03/09/22 03/07/22 History labetaloL [Labetalol 200mg TAB] 200 mg PO BID 03/09/22 03/09/22 Unknown History traMADoL [Ultram 50 MG tab] 50 mg PO Q6HR PRN 03/09/22 03/09/22 Unknown History Clopidogrel [Plavix] 75 mg PO QDAY tablet 03/10/22 Unknown Rx Gabapentin 300 mg PO TID capsule 03/10/22 Unknown Rx Losartan [Cozaar] 100 mg PO QDAY tablet 03/10/22 Unknown Rx NIFEdipine XL [Procardia Xl] 90 mg PO QDAY tablet 03/10/22 Unknown Rx Sevelamer Carbonate [Renvela] 2,400 mg PO AC tablet 03/10/22 Unknown Rx Warfarin [Coumadin] 7.5 mg PO ONCE@1700 tablet 03/10/22 Unknown Rx carvediloL [Coreg] 12.5 mg PO BID 30 Days #60 tablet 03/10/22 Unknown Rx Active Meds: Active Medications Acetaminophen (Acetaminophen 325 Mg Tab) 650 mg PO Q4H PRN PRN Reason: Pain MILD(1-3)/Fever >100.5/[place] Calcitriol (Calcitriol 0.25 Mcg Cap) 0.25 mcg PO QDAY [facility] Last Admin: 06/13/22 12:06 Dose: 0.25 mcg Carvedilol (Carvedilol 12.5 Mg Tab) 12.5 mg PO BID [facility] Last Admin: 06/13/22 09:37 Dose: Not Given Cinacalcet (Cinacalcet 30 Mg Tab) 60 mg PO QDAY [facility] Last Admin: 06/13/22 09:48 Dose: 60 mg Gabapentin (Gabapentin 300 Mg Cap) 300 mg PO TID [facility] Last Admin: 06/13/22 09:48 Dose: 300 mg Labetalol HCl (Labetalol 200 Mg Tab) 200 mg PO BID [facility] Last Admin: 06/13/22 09:49 Dose: 200 mg Losartan Potassium (Losartan 50 Mg Tab) 100 mg PO QDAY [facility] Last Admin: 06/13/22 09:48 Dose: 100 mg Morphine Sulfate (Morphine 2 Mg/1 Ml Inj) 2 mg IV Q4H PRN PRN Reason: Pain, Moderate (4-6) Last Admin: 06/13/22 12:05 Dose: 2 mg Morphine Sulfate (Morphine 4 Mg/1 Ml Inj) 4 mg IV Q4H PRN PRN Reason: Pain , Severe (7-10) Nifedipine (Nifedipine Xl 90 Mg Tab) 90 mg PO QDAY [facility] Last Admin: 06/13/22 09:49 Dose: 90 mg Ondansetron HCl (Ondansetron 4 Mg/2 Ml Inj) 4 mg IV Q8H PRN PRN Reason: Nausea And Vomiting Pantoprazole Sodium (Pantoprazole 40 Mg Tab) 40 mg PO QDAC [facility] Last Admin: 06/13/22 12:08 Dose: Not Given Sevelamer Carbonate (Sevelamer Carbonate 800 Mg Tab) 800 mg PO TIDWM [facility] Last Admin: 06/13/22 12:06 Dose: 800 mg Sodium Chloride (Sodium Chloride 0.9% 10 Ml Flush Syringe) 10 ml IV BID [facility] Last Admin: 06/13/22 09:49 Dose: 10 ml Sodium Chloride (Sodium Chloride 0.9% 10 Ml Flush Syringe) 10 ml IV PRN PRN PRN Reason: LINE FLUSH Review of Systems All systems: negative Exam - Vital Signs Vital signs: Vital Signs Temp Pulse Resp BP Pulse Ox 98.8 F 85 18 165/82 97 06/12/22 17:24 06/12/22 17:24 06/12/22 17:24 06/12/22 17:24 06/12/22 17:24 - General Appearance General appearance: well-developed, well-nourished EENT: ATNC Respiratory: Clear to Ascultation Heart: regular, S1S2 Gastrointestinal: Present: normal. Absent: distended, masses Integumentary: warm and dry Neurologic: alert and oriented x3 Psychiatric: cooperative Results - Lab Results 06/13/22 12:33 06/13/22 12:33 Most recent lab results Calcium 8.3 mg/dL (8.4-10.2) L 06/12/22 18:47 Assessment and Plan Impression: * End stage renal disease * Symptomatic anemia secondary to lack of SHASHANK vs GI loss * Hypertension * Secondary hyperparathyroidism Plan: * Hemodialysis today * UF as tolerated * Epogen TIW prn - will order 10,000 units * Renal diet * Dose medications for renal function * GI recommendations reviewed - note plans for EGD and colonoscopy on Wednesday * Transfuse pRBC prn
[2022-06-13 13:18] LABS: Basophils # (Auto) 0.1 K/mm3 (0.0-0.1); Eosinophils # (Auto) 0.2 K/mm3 (0.0-0.4); Eosinophils % (Auto) 3.1 % (0.0-4.3); Hematocrit 26.8 % (35.5-45.6); Hemoglobin 9.1 gm/dl (11.8-15.2); Lymphocytes # (Auto) 1.3 K/mm3 (1.2-5.4); Lymphocytes % (Auto) 25.5 % (13.4-35.0); Mean Corpuscular HGB Conc 34 % (32-34); Mean Corpuscular Volume 91 fl (84-94); Monocytes # (Auto) 0.2 K/mm3 (0.0-0.8); Monocytes % (Auto) 4.1 % (0.0-7.3); Platelet Count 229 K/mm3 (140-440); Red Blood Count 2.97 M/mm3 (3.65-5.03); Red Cell Distribution Width 17.6 % (13.2-15.2)
[2022-06-13 13:24] LABS: Calcium 8.8 mg/dL (8.4-10.2)
--- NOTE | 2022-06-13 14:06 | Progress Note ---
Assessment and Plan Assessment and plan: #Melena Hemoglobin 7.9--> 9.1 (on presentation). Received 1 unit packed RBC. Continue IV Protonix 40 mg twice daily and renal diet. Gastroenterology consulted; appreciate recs. Patient will not obtain colonoscopy any earlier than Wednesday. #ESRD on hemodialysis #Volume overload #Uremia -Access: Right upper extremity fistulogram -Outpatient schedule: Unknown -HD center: Unknown -Nephrology consulted; appreciate recs. Planning for hemodialysis today (06/13/2022) -Renally dose medications and avoid nephrotoxic drugs. Renal diet. #Depression Consulting [facility]; pending recs #Hypertension - home medications: Losartan 100 mg daily, Coreg 12.5 mg daily, labetalol 200 mg daily - current medications: Losartan 100 mg daily, Coreg 12.5 mg daily, labetalol 200 mg daily - SBP goal <160 and DBP goal <90 while inpatient - continue to monitor #History of acute ischemic CVA Continue goal-directed therapy #History of CABG Continue goal-directed therapy #Likely anemia of chronic disease Hemoglobin 7.9 Status post 1 unit packed RBC transfusion on admission. Transfuse if hemoglobin becomes <7 or patient become symptomatic. Starting calcitriol 0.5 mg daily. #Morbid obesity #Weight loss counseling #Exercise counseling - BMI 57.4 - Counseled patient on the importance of weight loss, incorporating exercise, and dietary changes (lean meats, fresh fruits and vegetables, and water intake). Patient expresses understanding. - Time: +15 min #Advanced care planning -Disease education conducted, care plan discussed, diagnoses discussed, prognosis discussed, and patient acknowledges understanding with care plan -Time: +30 min Disposition Plan: Continue medical management Total Time Spent with Patient (Minutes): 45 minutes History Interval history: No acute events overnight. Hospitalist Physical - Constitutional Vitals: Temp Pulse Resp BP Pulse Ox 98.3 F 86 18 189/103 98 06/13/22 09:32 06/13/22 09:32 06/13/22 09:32 06/13/22 09:32 06/13/22 10:44 General appearance: Present: no acute distress, well-nourished, obese - EENT Eyes: Present: PERRL, EOM intact ENT: hearing intact, clear oral mucosa, dentition normal - Neck Neck: Present: supple, normal ROM - Respiratory Respiratory effort: normal Respiratory: bilateral: CTA - Cardiovascular Rhythm: regular Heart Sounds: Present: S1 & S2 - Extremities Extremities: no ischemia, pulses intact, pulses symmetrical, No edema, normal temperature, normal color Peripheral Pulses: within normal limits - Abdominal General gastrointestinal: soft, non-tender, non-distended, normal bowel sounds - Integumentary Integumentary: Present: clear, warm, dry - Psychiatric Psychiatric: memory intact, cooperative, depressed - Neurologic Neurologic: CNII-XII intact, moves all extremities - Allied Health Allied health notes reviewed: nursing Results - Labs CBC & Chem 7: 06/13/22 12:33 06/13/22 12:33 Labs: Laboratory Last Values WBC 5.2 K/mm3 (4.5-11.0) 06/13/22 12:33 RBC 2.97 M/mm3 (3.65-5.03) L 06/13/22 12:33 Hgb 9.1 gm/dl (11.8-15.2) L 06/13/22 12:33 Hct 26.8 % (35.5-45.6) L 06/13/22 12:33 MCV 91 fl (84-94) 06/13/22 12:33 MCH 31 pg (28-32) 06/13/22 12:33 MCHC 34 % (32-34) 06/13/22 12:33 RDW 17.6 % (13.2-15.2) H 06/13/22 12:33 Plt Count 229 K/mm3 (140-440) 06/13/22 12:33 Lymph % (Auto) 25.5 % (13.4-35.0) 06/13/22 12:33 [place] % (Auto) 4.1 % (0.0-7.3) 06/13/22 12:33 Eos % (Auto) 3.1 % (0.0-4.3) 06/13/22 12:33 Baso % (Auto) 1.0 % (0.0-1.8) 06/13/22 12:33 Lymph # (Auto) 1.3 K/mm3 (1.2-5.4) 06/13/22 12:33 [place] # (Auto) 0.2 K/mm3 (0.0-0.8) 06/13/22 12:33 Eos # (Auto) 0.2 K/mm3 (0.0-0.4) 06/13/22 12:33 Baso # (Auto) 0.1 K/mm3 (0.0-0.1) 06/13/22 12:33 Seg Neutrophils % 66.3 % (40.0-70.0) 06/13/22 12:33 Seg Neutrophils # 3.5 K/mm3 (1.8-7.7) 06/13/22 12:33 PT 36.3 Sec. (12.2-14.9) H 06/12/22 19:43 INR 3.04 (0.87-1.13) H 06/12/22 19:43 APTT 45.9 Sec. (24.2-36.6) H 06/12/22 19:43 Sodium 142 mmol/L (137-145) 06/13/22 12:33 Potassium 4.0 mmol/L (3.6-5.0) 06/13/22 12:33 Chloride 101.0 mmol/L (98-107) 06/13/22 12:33 Carbon Dioxide 23 mmol/L (22-30) 06/13/22 12:33 Anion Gap 22 mmol/L 06/13/22 12:33 BUN 63 mg/dL (9-20) H 06/13/22 12:33 Creatinine 11.1 mg/dL (0.8-1.3) H 06/13/22 12:33 Estimated GFR 6 ml/min 06/13/22 12:33 BUN/Creatinine Ratio 6 % 06/13/22 12:33 Glucose 106 mg/dL (75-100) H 06/13/22 12:33 Calcium 8.8 mg/dL (8.4-10.2) 06/13/22 12:33 Total Bilirubin 0.50 mg/dL (0.1-1.2) 06/12/22 18:47 AST 11 units/L (5-40) 06/12/22 18:47 ALT 10 units/L (7-56) 06/12/22 18:47 Alkaline Phosphatase 125 units/L (35-129) 06/12/22 18:47 NT-Pro-B Natriuret Pep 31565 pg/mL (0-900) H 06/12/22 18:46 Total Protein 6.4 g/dL (6.3-8.2) 06/12/22 18:47 Albumin 4.4 g/dL (3.9-5) 06/12/22 18:47 Albumin/Globulin Ratio 2.2 % 06/12/22 18:47 Blood Type A POSITIVE 06/12/22 19:50 Antibody Screen Negative 06/12/22 19:50 Crossmatch See Detail 06/12/22 19:50 Microbiology: Microbiology 06/12/22 20:00 Stool - Stool Aspirate Stool Occult Blood ([place]ING[place]) - Final Active Medications - Current Medications Current Medications: Generic Name Dose Route Start Last Admin Trade Name Freq PRN Reason Stop Dose Admin Acetaminophen 650 mg 06/12/22 22:25 Acetaminophen 325 Mg Tab PO Q4H PRN Pain MILD(1-3)/Fever >100.5/[place] Calcitriol 0.25 mcg 06/13/22 10:00 06/13/22 12:06 Calcitriol 0.25 Mcg Cap PO 0.25 mcg QDAY ROMY Administration Carvedilol 12.5 mg 06/13/22 10:00 06/13/22 09:37 Carvedilol 12.5 Mg Tab PO Not Given BID ROMY Cinacalcet 60 mg 06/13/22 10:00 06/13/22 09:48 Cinacalcet 30 Mg Tab PO 60 mg QDAY ROMY Administration Epoetin Micha-epbx 10,000 unit 06/13/22 13:44 Epoetin Micha-Epbx 10,000 Unit/1 Ml Vial IV SOPHIE PRN hemodialysis Gabapentin 300 mg 06/13/22 08:00 06/13/22 09:48 Gabapentin 300 Mg Cap PO 300 mg TID ROMY Administration Sodium Chloride 100 mls @ 999 mls/hr 06/13/22 13:12 Nacl 0.9% IV SOPHIE PRN Hypotension Labetalol HCl 200 mg 06/13/22 10:00 06/13/22 09:49 Labetalol 200 Mg Tab PO 200 mg BID ROMY Administration Losartan Potassium 100 mg 06/13/22 10:00 06/13/22 09:48 Losartan 50 Mg Tab PO 100 mg QDAY ROMY Administration Morphine Sulfate 2 mg 06/12/22 22:25 06/13/22 12:05 Morphine 2 Mg/1 Ml Inj IV 2 mg Q4H PRN Administration Pain, Moderate (4-6) Morphine Sulfate 4 mg 06/12/22 22:25 Morphine 4 Mg/1 Ml Inj IV Q4H PRN Pain , Severe (7-10) Nifedipine 90 mg 06/13/22 10:00 06/13/22 09:49 Nifedipine Xl 90 Mg Tab PO 90 mg QDAY ROMY Administration Ondansetron HCl 4 mg 06/12/22 22:25 Ondansetron 4 Mg/2 Ml Inj IV Q8H PRN Nausea And Vomiting Pantoprazole Sodium 40 mg 06/13/22 10:00 06/13/22 12:08 Pantoprazole 40 Mg Tab PO Not Given QDAC ROMY Sevelamer Carbonate 800 mg 06/13/22 08:00 06/13/22 12:06 Sevelamer Carbonate 800 Mg Tab PO 800 mg TIDWM ROMY Administration Sodium Chloride 10 ml 06/13/22 10:00 06/13/22 09:49 Sodium Chloride 0.9% 10 Ml Flush Syringe IV 10 ml BID ROMY Administration Sodium Chloride 10 ml 06/12/22 22:25 Sodium Chloride 0.9% 10 Ml Flush Syringe IV PRN PRN LINE FLUSH
[2022-06-13] MEDS: EPOETIN ALFA-EPBX 10,000 UNIT/1 ML VIAL IV PRN (14:44)
[2022-06-13 18:06] LABS: Hepatitis B Surface Antigen Non-Reactive (Negative); Hepatitis C Virus Antibody Non-Reactive (NonReactive)
[2022-06-14 05:46] LABS: Hemoglobin 8.3 gm/dl (11.8-15.2); Mean Corpuscular HGB Conc 33 % (32-34); Mean Corpuscular Volume 92 fl (84-94); Platelet Count 208 K/mm3 (140-440); Red Blood Count 2.73 M/mm3 (3.65-5.03); Red Cell Distribution Width 17.5 % (13.2-15.2)
[2022-06-14 05:56] LABS: INR 2.54 (0.87-1.13)
[2022-06-14 06:26] LABS: Calcium 8.3 mg/dL (8.4-10.2)
[2022-06-14] MEDS: PANTOPRAZOLE 40 MG TAB PO SCH (08:41)
[2022-06-14] MEDS: GABAPENTIN 300 MG CAP PO SCH ×3 (08:42→19:25)
[2022-06-14] MEDS: SEVELAMER CARBONATE 800 MG TAB PO SCH ×3 (08:42→17:31)
[2022-06-14] MEDS: LOSARTAN 50 MG TAB PO SCH (09:19)
[2022-06-14] MEDS: CINACALCET 30 MG TAB PO SCH (09:20)
[2022-06-14] MEDS: NIFEdipine XL 90 MG TAB PO SCH (09:20)
[2022-06-14] MEDS: CALCITRIOL 0.25 MCG CAP PO SCH (09:21)
[2022-06-14] MEDS: carvediloL 12.5 MG TAB PO SCH ×2 (09:22→21:07)
--- NOTE | 2022-06-14 09:57 | Progress Note ---
Assessment and Plan Assessment and plan: #Melena Hemoglobin 7.9--> 9.1 (on presentation). Received 1 unit packed RBC. Continue p.o. Protonix 40 mg daily and renal diet. Gastroenterology consulted; appreciate recs. Patient will not obtain colonoscopy any earlier than Wednesday. #ESRD on hemodialysis #Volume overload #Uremia #Malfunctioning LUE AV fistula -Access: Left upper extremity fistulogram -Outpatient schedule: Unknown -HD center: Unknown -Nephrology consulted; appreciate recs. Unable to perform hemodialysis due to malfunctioning fistula. -Renally dose medications and avoid nephrotoxic drugs. Renal diet. -Vascular Surgery consulted; pending recs #Depression Consulting [facility]; pending recs #Hypertension - home medications: Losartan 100 mg daily, Coreg 12.5 mg daily, labetalol 200 mg daily - current medications: Losartan 100 mg daily, Coreg 12.5 mg daily, labetalol 200 mg daily - SBP goal <160 and DBP goal <90 while inpatient - continue to monitor #History of acute ischemic CVA Continue goal-directed therapy #History of CABG Continue goal-directed therapy #Likely anemia of chronic disease Hemoglobin 7.9 Status post 1 unit packed RBC transfusion on admission. Transfuse if hemoglobin becomes <7 or patient become symptomatic. Continue calcitriol 0.5 mg daily. #Morbid obesity #Weight loss counseling #Exercise counseling - BMI 57.4 - Counseled patient on the importance of weight loss, incorporating exercise, and dietary changes (lean meats, fresh fruits and vegetables, and water intake). Patient expresses understanding. - Time: +15 min #Advanced care planning -Disease education conducted, care plan discussed, diagnoses discussed, prognosis discussed, and patient acknowledges understanding with care plan -Time: +30 min Disposition Plan: Continue medical management Total Time Spent with Patient (Minutes): 45 minutes History Interval history: Patient underwent hemodialysis yesterday and tolerated the procedure well. Hospitalist Physical - Constitutional Vitals: Temp Pulse Resp BP Pulse Ox 98.4 F 86 18 159/84 98 06/14/22 08:40 06/14/22 08:52 06/14/22 08:52 06/14/22 08:52 06/14/22 09:46 General appearance: Present: no acute distress, well-nourished, obese - EENT Eyes: Present: PERRL, EOM intact ENT: hearing intact, clear oral mucosa, edentulous - Neck Neck: Present: supple, normal ROM - Respiratory Respiratory effort: normal Respiratory: bilateral: CTA - Cardiovascular Rhythm: regular Heart Sounds: Present: S1 & S2 - Extremities Extremities: no ischemia, pulses intact, pulses symmetrical, No edema, normal temperature, normal color, abnormal (AV fistula of left upper extremity) Peripheral Pulses: within normal limits - Abdominal General gastrointestinal: soft, non-tender, non-distended, normal bowel sounds - Integumentary Integumentary: Present: clear, warm, dry - Psychiatric Psychiatric: appropriate mood/affect, cooperative, depressed - Neurologic Neurologic: CNII-XII intact, moves all extremities - Allied Health Allied health notes reviewed: nursing Results - Labs CBC & Chem 7: 06/14/22 05:09 06/14/22 05:09 Labs: Laboratory Last Values WBC 4.3 K/mm3 (4.5-11.0) L 06/14/22 05:09 RBC 2.73 M/mm3 (3.65-5.03) L 06/14/22 05:09 Hgb 8.3 gm/dl (11.8-15.2) L 06/14/22 05:09 Hct 25.0 % (35.5-45.6) L 06/14/22 05:09 MCV 92 fl (84-94) 06/14/22 05:09 MCH 30 pg (28-32) 06/14/22 05:09 MCHC 33 % (32-34) 06/14/22 05:09 RDW 17.5 % (13.2-15.2) H 06/14/22 05:09 Plt Count 208 K/mm3 (140-440) 06/14/22 05:09 Lymph % (Auto) 25.5 % (13.4-35.0) 06/13/22 12:33 [place] % (Auto) 4.1 % (0.0-7.3) 06/13/22 12:33 Eos % (Auto) 3.1 % (0.0-4.3) 06/13/22 12:33 Baso % (Auto) 1.0 % (0.0-1.8) 06/13/22 12:33 Lymph # (Auto) 1.3 K/mm3 (1.2-5.4) 06/13/22 12:33 [place] # (Auto) 0.2 K/mm3 (0.0-0.8) 06/13/22 12:33 Eos # (Auto) 0.2 K/mm3 (0.0-0.4) 06/13/22 12:33 Baso # (Auto) 0.1 K/mm3 (0.0-0.1) 06/13/22 12:33 Seg Neutrophils % 66.3 % (40.0-70.0) 06/13/22 12:33 Seg Neutrophils # 3.5 K/mm3 (1.8-7.7) 06/13/22 12:33 PT 30.7 Sec. (12.2-14.9) H 06/14/22 05:09 INR 2.54 (0.87-1.13) H 06/14/22 05:09 APTT 45.9 Sec. (24.2-36.6) H 06/12/22 19:43 Sodium 143 mmol/L (137-145) 06/14/22 05:09 Potassium 3.4 mmol/L (3.6-5.0) L 06/14/22 05:09 Chloride 101.7 mmol/L (98-107) 06/14/22 05:09 Carbon Dioxide 26 mmol/L (22-30) 06/14/22 05:09 Anion Gap 19 mmol/L 06/14/22 05:09 BUN 36 mg/dL (9-20) H 06/14/22 05:09 Creatinine 8.0 mg/dL (0.8-1.3) H 06/14/22 05:09 Estimated GFR 8 ml/min 06/14/22 05:09 BUN/Creatinine Ratio 5 % 06/14/22 05:09 Glucose 92 mg/dL (75-100) 06/14/22 05:09 Calcium 8.3 mg/dL (8.4-10.2) L 06/14/22 05:09 Total Bilirubin 0.50 mg/dL (0.1-1.2) 06/12/22 18:47 AST 11 units/L (5-40) 06/12/22 18:47 ALT 10 units/L (7-56) 06/12/22 18:47 Alkaline Phosphatase 125 units/L (35-129) 06/12/22 18:47 NT-Pro-B Natriuret Pep 93782 pg/mL (0-900) H 06/12/22 18:46 Total Protein 6.4 g/dL (6.3-8.2) 06/12/22 18:47 Albumin 4.4 g/dL (3.9-5) 06/12/22 18:47 Albumin/Globulin Ratio 2.2 % 06/12/22 18:47 Hepatitis A IgM Ab Non-reactive (NonReactive) 06/13/22 14:00 Hep Bs Antigen Non-reactive (Negative) 06/13/22 14:00 Hep B Core IgM Ab Non-reactive (NonReactive) 06/13/22 14:00 Hepatitis C Antibody Non-reactive (NonReactive) 06/13/22 14:00 Blood Type A POSITIVE 06/12/22 19:50 Antibody Screen Negative 06/12/22 19:50 Crossmatch See Detail 06/12/22 19:50 [place]/IV: Voiding Method Toilet Active Medications - Current Medications Current Medications: Generic Name Dose Route Start Last Admin Trade Name Freq PRN Reason Stop Dose Admin Acetaminophen 650 mg 06/12/22 22:25 Acetaminophen 325 Mg Tab PO Q4H PRN Pain MILD(1-3)/Fever >100.5/[place] Calcitriol 0.25 mcg 06/13/22 10:00 06/14/22 09:21 Calcitriol 0.25 Mcg Cap PO 0.25 mcg QDAY ROMY Administration Carvedilol 12.5 mg 06/13/22 10:00 06/14/22 09:22 Carvedilol 12.5 Mg Tab PO 12.5 mg BID ROMY Administration Cinacalcet 60 mg 06/13/22 10:00 06/14/22 09:20 Cinacalcet 30 Mg Tab PO 60 mg QDAY ROMY Administration Epoetin Micha-epbx 10,000 unit 06/13/22 13:44 06/13/22 14:44 Epoetin Micha-Epbx 10,000 Unit/1 Ml Vial IV 10,000 unit SOPHIE PRN Administration hemodialysis Gabapentin 300 mg 06/13/22 08:00 06/14/22 08:42 Gabapentin 300 Mg Cap PO 300 mg TID ROMY Administration Sodium Chloride 100 mls @ 999 mls/hr 06/13/22 13:12 Nacl 0.9% IV SOPHIE PRN Hypotension Labetalol HCl 200 mg 06/13/22 10:00 06/14/22 09:21 Labetalol 200 Mg Tab PO 200 mg BID ROMY Administration Losartan Potassium 100 mg 06/13/22 10:00 06/14/22 09:19 Losartan 50 Mg Tab PO 100 mg QDAY ROMY Administration Morphine Sulfate 2 mg 06/12/22 22:25 06/13/22 18:15 Morphine 2 Mg/1 Ml Inj IV 2 mg Q4H PRN Administration Pain, Moderate (4-6) Morphine Sulfate 4 mg 06/12/22 22:25 06/13/22 22:03 Morphine 4 Mg/1 Ml Inj IV 4 mg Q4H PRN Administration Pain , Severe (7-10) Nifedipine 90 mg 06/13/22 10:00 06/14/22 09:20 Nifedipine Xl 90 Mg Tab PO 90 mg QDAY ROMY Administration Ondansetron HCl 4 mg 06/12/22 22:25 Ondansetron 4 Mg/2 Ml Inj IV Q8H PRN Nausea And Vomiting Pantoprazole Sodium 40 mg 06/13/22 10:00 06/14/22 08:41 Pantoprazole 40 Mg Tab PO 40 mg QDAC ROMY Administration Potassium Chloride 40 meq 06/14/22 09:52 Potassium Chloride Er 20 Meq Tab PO 06/14/22 09:53 ONCE ONE Sevelamer Carbonate 800 mg 06/13/22 08:00 06/14/22 08:42 Sevelamer Carbonate 800 Mg Tab PO 800 mg TIDWM ROMY Administration Sodium Chloride 10 ml 06/13/22 10:00 06/14/22 09:21 Sodium Chloride 0.9% 10 Ml Flush Syringe IV 10 ml BID ROMY Administration Sodium Chloride 10 ml 06/12/22 22:25 Sodium Chloride 0.9% 10 Ml Flush Syringe IV PRN PRN LINE FLUSH
[2022-06-14] MEDS ORDERED: POTASSIUM CHLORIDE ER 20 MEQ TAB PO ONE (11:00)
--- NOTE | 2022-06-14 11:26 | Gastroenterology Progress Note ---
Assessment and Plan - Patient Problems (1) Symptomatic anemia Current Visit: Yes Status: Acute Plan to address problem: - I suspect anemia of chronic disease, but given the severity, he needs an EGD/colonoscopy. - He has significant cardiomyopathy (EF 30%), missed HD, a dysfunctional AVG, and fluid overload, as well as coagulopathy from meds; will defer endoscopy at present until approx Wednesday, after 1 more session of HD. - Plan hold coumadin and Plavix, continue HD here, and EGD/colon Wednesday if stabilized. - Transfuse as needed. - No gross blood loss or hematemesis; VSS; PO protonix is oK. Subjective Date of service: 06/14/22 Principal diagnosis: Anemia Interval history: The patient has not had any melena or hematochezia overnight. He denies abd ominal pain, fevers, chest pain, and his SOB is improved after HD. However, his HD session was cut short and flow reduced (his report) because the LUE AVG is still not functioning properly. Objective - Constitutional Vitals: Temp Pulse Resp BP Pulse Ox 98.4 F 86 18 159/84 98 06/14/22 08:40 06/14/22 08:52 06/14/22 08:52 06/14/22 08:52 06/14/22 09:46 General appearance: no acute distress - Respiratory Respiratory effort: normal Respiratory: bilateral: CTA - Cardiovascular Rhythm: regular Heart Sounds: Present: S1 & S2 - Gastrointestinal General gastrointestinal: Present: soft, non-tender, non-distended - Labs CBC & Chem 7: 06/14/22 05:09 06/14/22 05:09 Labs: Laboratory Results - last 24 hr 06/13/22 06/13/22 06/13/22 12:33 12:33 14:00 WBC 5.2 RBC 2.97 L Hgb 9.1 L Hct 26.8 L MCV 91 MCH 31 MCHC 34 RDW 17.6 H Plt Count 229 Lymph % (Auto) 25.5 [place] % (Auto) 4.1 Eos % (Auto) 3.1 Baso % (Auto) 1.0 Lymph # (Auto) 1.3 [place] # (Auto) 0.2 Eos # (Auto) 0.2 Baso # (Auto) 0.1 Seg Neutrophils % 66.3 Seg Neutrophils # 3.5 PT INR Sodium 142 Potassium 4.0 Chloride 101.0 Carbon Dioxide 23 Anion Gap 22 BUN 63 H Creatinine 11.1 H Estimated GFR 6 BUN/Creatinine Ratio 6 Glucose 106 H Calcium 8.8 Hepatitis A IgM Ab Non-reactive Hep Bs Antigen Non-reactive Hep B Core IgM Ab Non-reactive Hepatitis C Antibody Non-reactive 06/14/22 06/14/22 06/14/22 05:09 05:09 05:09 WBC 4.3 L RBC 2.73 L Hgb 8.3 L Hct 25.0 L MCV 92 MCH 30 MCHC 33 RDW 17.5 H Plt Count 208 Lymph % (Auto) [place] % (Auto) Eos % (Auto) Baso % (Auto) Lymph # (Auto) [place] # (Auto) Eos # (Auto) Baso # (Auto) Seg Neutrophils % Seg Neutrophils # PT 30.7 H INR 2.54 H Sodium 143 Potassium 3.4 L Chloride 101.7 Carbon Dioxide 26 Anion Gap 19 BUN 36 H Creatinine 8.0 H Estimated GFR 8 BUN/Creatinine Ratio 5 Glucose 92 Calcium 8.3 L Hepatitis A IgM Ab Hep Bs Antigen Hep B Core IgM Ab Hepatitis C Antibody
[2022-06-14] MEDS: MORPHINE 2 MG/1 ML INJ IV PRN (13:15)
--- NOTE | 2022-06-14 15:13 | Electrocardiograph Report ---
[facility] Test Date: 2022-06-12 Test Time: 20:35:30 Pat Name: HANNAH GARDNER Department: Room: A476 1 Gender: M [employer] Layer: DERRICK : 1960 Requested By: CHANDU FARRELL Order Number: [id number] Reading MD: Danielle Michelle Measurements Intervals [place] Rate: 83 P: 49 MD: 225 QRS: 20 QRSD: 109 T: 218 QT: 391 QTc: 460 Interpretive Statements Sinus rhythm Prolonged MD interval Probable left atrial enlargement LVH with secondary repolarization abnormality Compared to ECG 03/08/2022 19:22:33 Ventricular premature complex(es) now present Left ventricular hypertrophy now present Early repolarization now present Myocardial infarct finding no longer present T-wave abnormality no longer present Prolonged QT interval no longer present Electronically Signed On 06-14-2022 15:13:30 EDT by Danielle Michelle
--- NOTE | 2022-06-14 16:31 | Progress Note ---
Assessment and Plan Impression: * End stage renal disease (home hemodialysis followed by Dr. Sanford Rodriguez) * Symptomatic anemia secondary to lack of SHASHANK vs GI loss * Hypertension * Secondary hyperparathyroidism Plan: * Patient is s/p dialysis yesterday - reports Qb was reduced from 400 to 300 * Hemodialysis tomorrow * Note plans for EGD/colonoscopy on Wednesday * Patient may require another fistulogram (patient reports recent fistulogram last week) * Epogen 10k TIW prn * Renal diet * Dose medications for renal function * Transfuse pRBC prn Subjective Date of service: 06/14/22 Principal diagnosis: Anemia Interval history: Patient has no complaints today Objective - Vital Signs Vital signs: Vital Signs - 12hr 06/14/22 06/14/22 06/14/22 08:40 08:52 09:46 Temperature 98.4 F Pulse Rate 86 Pulse Rate [ Radial] Respiratory 18 Rate Blood Pressure 159/84 [Left] O2 Sat by Pulse 96 98 Oximetry 06/14/22 06/14/22 06/14/22 10:00 12:07 14:00 Temperature 97.8 F Pulse Rate 72 Pulse Rate [ 92 H Radial] Respiratory 18 Rate Blood Pressure [Left] O2 Sat by Pulse 96 Oximetry - General Appearance General appearance: well-developed, well-nourished EENT: ATNC Respiratory: Present: Clear to Ascultation Cardiology: regular, S1S2, other (SABIHA AV access +bruit) Gastrointestinal: no tenderness, no distended Integumentary: warm and dry Neurologic: alert and oriented x3 Musculoskeletal: other (no edema) Psychiatric: cooperative - Lab 06/14/22 05:09 06/14/22 05:09 Most recent lab results Calcium 8.3 mg/dL (8.4-10.2) L 06/14/22 05:09 Medications & Allergies - Medications Allergies/Adverse Reactions: Allergies Penicillins Allergy (Verified 03/08/22 17:44) Hives Home Medications: Home Medications Medication Instructions Recorded Confirmed Last Taken Type Cinacalcet HCl [Sensipar] 60 mg PO DAILY 03/09/22 06/14/22 03/07/22 History Clopidogrel [Plavix] 75 mg PO QDAY 03/09/22 06/14/22 Unknown History Diclofenac 1% [Diclofenac 1% 2 gm TP QDAY 03/09/22 06/14/22 Unknown History topical gel] Losartan [Cozaar] 100 mg PO BID 03/09/22 06/14/22 03/07/22 History NIFEdipine [Nifedipine ER] 90 mg PO DAILY 03/09/22 06/14/22 03/07/22 History Sevelamer Carbonate [Renvela] 800 mg PO TIDWM 03/09/22 06/14/22 03/07/22 History Warfarin [Coumadin] 3.75 mg PO 2XW 03/09/22 06/14/22 Unknown History Warfarin [Coumadin] 7.5 mg PO 5XW 03/09/22 06/14/22 03/07/22 History labetaloL [Labetalol 200mg TAB] 200 mg PO BID 03/09/22 06/14/22 Unknown History traMADoL [Ultram 50 MG tab] 50 mg PO Q6HR PRN 03/09/22 06/14/22 Unknown History Clopidogrel [Plavix] 75 mg PO QDAY tablet 03/10/22 06/14/22 Unknown Rx Gabapentin 300 mg PO TID capsule 03/10/22 06/14/22 Unknown Rx Losartan [Cozaar] 100 mg PO QDAY tablet 03/10/22 06/14/22 Unknown Rx NIFEdipine XL [Procardia Xl] 90 mg PO QDAY tablet 03/10/22 06/14/22 Unknown Rx Sevelamer Carbonate [Renvela] 2,400 mg PO AC tablet 03/10/22 06/14/22 Unknown Rx Warfarin [Coumadin] 7.5 mg PO ONCE@1700 tablet 03/10/22 06/14/22 Unknown Rx carvediloL [Coreg] 12.5 mg PO BID 30 Days #60 tablet 03/10/22 06/14/22 Unknown Rx Active Medications: Generic Name Dose Route Start Last Admin Trade Name Freq PRN Reason Stop Dose Admin Acetaminophen 650 mg 06/12/22 22:25 Acetaminophen 325 Mg Tab PO Q4H PRN Pain MILD(1-3)/Fever >100.5/[place] Calcitriol 0.25 mcg 06/13/22 10:00 06/14/22 09:21 Calcitriol 0.25 Mcg Cap PO 0.25 mcg QDAY ROMY Administration Carvedilol 12.5 mg 06/13/22 10:00 06/14/22 09:22 Carvedilol 12.5 Mg Tab PO 12.5 mg BID ROMY Administration Cinacalcet 60 mg 06/13/22 10:00 06/14/22 09:20 Cinacalcet 30 Mg Tab PO 60 mg QDAY ROMY Administration Epoetin Micha-epbx 10,000 unit 06/13/22 13:44 06/13/22 14:44 Epoetin Micha-Epbx 10,000 Unit/1 Ml Vial IV 10,000 unit SOPHIE PRN Administration hemodialysis Gabapentin 300 mg 06/13/22 08:00 06/14/22 13:15 Gabapentin 300 Mg Cap PO 300 mg TID ROMY Administration Sodium Chloride 100 mls @ 999 mls/hr 06/13/22 13:12 Nacl 0.9% IV SOPHIE PRN Hypotension Labetalol HCl 200 mg 06/13/22 10:00 06/14/22 09:21 Labetalol 200 Mg Tab PO 200 mg BID ROMY Administration Losartan Potassium 100 mg 06/13/22 10:00 06/14/22 09:19 Losartan 50 Mg Tab PO 100 mg QDAY ROMY Administration Morphine Sulfate 2 mg 06/12/22 22:25 06/14/22 13:15 Morphine 2 Mg/1 Ml Inj IV 2 mg Q4H PRN Administration Pain, Moderate (4-6) Morphine Sulfate 4 mg 06/12/22 22:25 06/13/22 22:03 Morphine 4 Mg/1 Ml Inj IV 4 mg Q4H PRN Administration Pain , Severe (7-10) Nifedipine 90 mg 06/13/22 10:00 06/14/22 09:20 Nifedipine Xl 90 Mg Tab PO 90 mg QDAY ROMY Administration Ondansetron HCl 4 mg 06/12/22 22:25 Ondansetron 4 Mg/2 Ml Inj IV Q8H PRN Nausea And Vomiting Pantoprazole Sodium 40 mg 06/13/22 10:00 06/14/22 08:41 Pantoprazole 40 Mg Tab PO 40 mg QDAC ROMY Administration Sevelamer Carbonate 800 mg 06/13/22 08:00 06/14/22 12:05 Sevelamer Carbonate 800 Mg Tab PO 800 mg TIDWM ROMY Administration Sodium Chloride 10 ml 06/13/22 10:00 06/14/22 09:21 Sodium Chloride 0.9% 10 Ml Flush Syringe IV 10 ml BID ROMY Administration Sodium Chloride 10 ml 06/12/22 22:25 Sodium Chloride 0.9% 10 Ml Flush Syringe IV PRN PRN LINE FLUSH
[2022-06-14] MEDS ORDERED: SODIUM CHLORIDE 0.9% 100 ML IV PRN (18:41)
[2022-06-15 06:29] LABS: Calcium 8.3 mg/dL (8.4-10.2)
--- NOTE | 2022-06-15 06:49 | Progress Note ---
Assessment and Plan Assessment and plan: #Melena Hemoglobin 7.9--> 9.1 (on presentation). Received 1 unit packed RBC. Continue p.o. Protonix 40 mg daily and renal diet. Gastroenterology consulted; appreciate recs. Planning for colonoscopy on 06/16/2022. Changing to CLD now and will be NPO at midnight. #ESRD on hemodialysis #Volume overload #Uremia #Malfunctioning LUE AV fistula -Access: Left upper extremity fistulogram -Outpatient schedule: Unknown -HD center: Unknown -Nephrology consulted; appreciate recs. Unable to perform hemodialysis due to malfunctioning fistula. -Renally dose medications and avoid nephrotoxic drugs. Renal diet. -Vascular Surgery consulted; pending recs #Depression Consulting [facility] psychiat[facility]; pending recs #Hypertension - home medications: Losartan 100 mg daily, Coreg 12.5 mg daily, labetalol 200 mg daily - current medications: Losartan 100 mg daily, Coreg 12.5 mg daily, labetalol 200 mg daily - SBP goal <160 and DBP goal <90 while inpatient - continue to monitor #History of acute ischemic CVA Continue goal-directed therapy. Holding home warfarin as the patient pr esented with melena and might need AV fistula repair. Warfarin can be restarted afterwards. #History of CABG Continue goal-directed therapy #Likely anemia of chronic disease Hemoglobin 7.9--> 9.1 Status post 1 unit packed RBC transfusion on admission. Transfuse if hemoglobin becomes <7 or patient become symptomatic. Continue calcitriol 0.5 mg daily. #Morbid obesity #Weight loss counseling #Exercise counseling - BMI 57.4 - Counseled patient on the importance of weight loss, incorporating exercise, and dietary changes (lean meats, fresh fruits and vegetables, and water intake). Patient expresses understanding. - Time: +15 min #Advanced care planning -Disease education conducted, care plan discussed, diagnoses discussed, prognosis discussed, and patient acknowledges understanding with care plan -Time: +30 min Disposition Plan: Continue medical management Total Time Spent with Patient (Minutes): 45 minutes History Interval history: No acute events overnight. Hospitalist Physical - Constitutional Vitals: Temp Pulse Resp BP Pulse Ox 98.9 F 68 16 132/71 93 06/15/22 06:03 06/15/22 06:02 06/14/22 23:56 06/15/22 06:02 06/15/22 06:02 General appearance: Present: no acute distress, well-nourished, obese - EENT Eyes: Present: PERRL, EOM intact ENT: hearing intact, clear oral mucosa, edentulous - Neck Neck: Present: supple, normal ROM - Respiratory Respiratory effort: normal Respiratory: bilateral: CTA - Cardiovascular Rhythm: regular Heart Sounds: Present: S1 & S2 - Extremities Extremities: no ischemia, pulses intact, pulses symmetrical, No edema, normal temperature, normal color, Full ROM, abnormal (Left upper extremity AV fistula) Peripheral Pulses: within normal limits - Abdominal General gastrointestinal: soft, non-tender, non-distended, normal bowel sounds - Integumentary Integumentary: Present: clear, warm, dry - Psychiatric Psychiatric: appropriate mood/affect, cooperative, depressed - Neurologic Neurologic: CNII-XII intact, focal deficits (Left foot drop) - Allied Health Allied health notes reviewed: nursing Results - Labs CBC & Chem 7: 06/14/22 05:09 06/15/22 05:39 Labs: Laboratory Last Values WBC 4.3 K/mm3 (4.5-11.0) L 06/14/22 05:09 RBC 2.73 M/mm3 (3.65-5.03) L 06/14/22 05:09 Hgb 8.3 gm/dl (11.8-15.2) L 06/14/22 05:09 Hct 25.0 % (35.5-45.6) L 06/14/22 05:09 MCV 92 fl (84-94) 06/14/22 05:09 MCH 30 pg (28-32) 06/14/22 05:09 MCHC 33 % (32-34) 06/14/22 05:09 RDW 17.5 % (13.2-15.2) H 06/14/22 05:09 Plt Count 208 K/mm3 (140-440) 06/14/22 05:09 Lymph % (Auto) 25.5 % (13.4-35.0) 06/13/22 12:33 [place] % (Auto) 4.1 % (0.0-7.3) 06/13/22 12:33 Eos % (Auto) 3.1 % (0.0-4.3) 06/13/22 12:33 Baso % (Auto) 1.0 % (0.0-1.8) 06/13/22 12:33 Lymph # (Auto) 1.3 K/mm3 (1.2-5.4) 06/13/22 12:33 [place] # (Auto) 0.2 K/mm3 (0.0-0.8) 06/13/22 12:33 Eos # (Auto) 0.2 K/mm3 (0.0-0.4) 06/13/22 12:33 Baso # (Auto) 0.1 K/mm3 (0.0-0.1) 06/13/22 12:33 Seg Neutrophils % 66.3 % (40.0-70.0) 06/13/22 12:33 Seg Neutrophils # 3.5 K/mm3 (1.8-7.7) 06/13/22 12:33 PT 30.7 Sec. (12.2-14.9) H 06/14/22 05:09 INR 2.54 (0.87-1.13) H 06/14/22 05:09 APTT 45.9 Sec. (24.2-36.6) H 06/12/22 19:43 Sodium 142 mmol/L (137-145) 06/15/22 05:39 Potassium 3.9 mmol/L (3.6-5.0) 06/15/22 05:39 Chloride 101.0 mmol/L (98-107) 06/15/22 05:39 Carbon Dioxide 27 mmol/L (22-30) 06/15/22 05:39 Anion Gap 18 mmol/L 06/15/22 05:39 BUN 46 mg/dL (9-20) H 06/15/22 05:39 Creatinine 10.2 mg/dL (0.8-1.3) H 06/15/22 05:39 Estimated GFR 6 ml/min 06/15/22 05:39 BUN/Creatinine Ratio 5 % 06/15/22 05:39 Glucose 107 mg/dL (75-100) H 06/15/22 05:39 Calcium 8.3 mg/dL (8.4-10.2) L 06/15/22 05:39 Phosphorus 3.50 mg/dL (2.5-4.5) 06/15/22 05:39 Magnesium 2.20 mg/dL (1.7-2.3) 06/15/22 05:39 Total Bilirubin 0.50 mg/dL (0.1-1.2) 06/12/22 18:47 AST 11 units/L (5-40) 06/12/22 18:47 ALT 10 units/L (7-56) 06/12/22 18:47 Alkaline Phosphatase 125 units/L (35-129) 06/12/22 18:47 NT-Pro-B Natriuret Pep 95474 pg/mL (0-900) H 06/12/22 18:46 Total Protein 6.4 g/dL (6.3-8.2) 06/12/22 18:47 Albumin 4.4 g/dL (3.9-5) 06/12/22 18:47 Albumin/Globulin Ratio 2.2 % 06/12/22 18:47 Nasal Screen MRSA (PCR) Negative (Negative) 06/14/22 23:40 Hepatitis A IgM Ab Non-reactive (NonReactive) 06/13/22 14:00 Hep Bs Antigen Non-reactive (Negative) 06/13/22 14:00 Hep B Core IgM Ab Non-reactive (NonReactive) 06/13/22 14:00 Hepatitis C Antibody Non-reactive (NonReactive) 06/13/22 14:00 Blood Type A POSITIVE 06/12/22 19:50 Antibody Screen Negative 06/12/22 19:50 Crossmatch See Detail 06/12/22 19:50 Fiore/IV: Voiding Method Toilet Active Medications - Current Medications Current Medications: Generic Name Dose Route Start Last Admin Trade Name Freq PRN Reason Stop Dose Admin Acetaminophen 650 mg 06/12/22 22:25 Acetaminophen 325 Mg Tab PO Q4H PRN Pain MILD(1-3)/Fever >100.5/[place] Calcitriol 0.25 mcg 06/13/22 10:00 06/14/22 09:21 Calcitriol 0.25 Mcg Cap PO 0.25 mcg QDAY ROMY Administration Carvedilol 12.5 mg 06/13/22 10:00 06/14/22 21:07 Carvedilol 12.5 Mg Tab PO 12.5 mg BID ROMY Administration Cinacalcet 60 mg 06/13/22 10:00 06/14/22 09:20 Cinacalcet 30 Mg Tab PO 60 mg QDAY ROMY Administration Epoetin Micha-epbx 10,000 unit 06/13/22 13:44 06/13/22 14:44 Epoetin Micha-Epbx 10,000 Unit/1 Ml Vial IV 10,000 unit SOPHIE PRN Administration hemodialysis Gabapentin 300 mg 06/13/22 08:00 06/14/22 19:25 Gabapentin 300 Mg Cap PO 300 mg TID ROMY Administration Sodium Chloride 100 mls @ 999 mls/hr 06/13/22 13:12 Nacl 0.9% IV SOPHIE PRN Hypotension Sodium Chloride 100 mls @ 999 mls/hr 06/14/22 18:41 Nacl 0.9% IV SOPHIE PRN Hypotension Labetalol HCl 200 mg 06/13/22 10:00 06/14/22 21:08 Labetalol 200 Mg Tab PO 200 mg BID ROMY Administration Losartan Potassium 100 mg 06/13/22 10:00 06/14/22 09:19 Losartan 50 Mg Tab PO 100 mg QDAY ROMY Administration Morphine Sulfate 2 mg 06/12/22 22:25 06/14/22 13:15 Morphine 2 Mg/1 Ml Inj IV 2 mg Q4H PRN Administration Pain, Moderate (4-6) Morphine Sulfate 4 mg 06/12/22 22:25 06/13/22 22:03 Morphine 4 Mg/1 Ml Inj IV 4 mg Q4H PRN Administration Pain , Severe (7-10) Nifedipine 90 mg 06/13/22 10:00 06/14/22 09:20 Nifedipine Xl 90 Mg Tab PO 90 mg QDAY ROMY Administration Ondansetron HCl 4 mg 06/12/22 22:25 06/14/22 17:31 Ondansetron 4 Mg/2 Ml Inj IV 4 mg Q8H PRN Administration Nausea And Vomiting Pantoprazole Sodium 40 mg 06/13/22 10:00 06/14/22 08:41 Pantoprazole 40 Mg Tab PO 40 mg QDAC ROMY Administration Sevelamer Carbonate 800 mg 06/13/22 08:00 06/14/22 17:31 Sevelamer Carbonate 800 Mg Tab PO 800 mg TIDWM ROMY Administration Sodium Chloride 10 ml 06/13/22 10:00 06/14/22 21:08 Sodium Chloride 0.9% 10 Ml Flush Syringe IV 10 ml BID ROMY Administration Sodium Chloride 10 ml 06/12/22 22:25 Sodium Chloride 0.9% 10 Ml Flush Syringe IV PRN PRN LINE FLUSH
--- NOTE | 2022-06-15 08:02 | Gastroenterology Progress Note ---
Assessment and Plan - Patient Problems (1) Symptomatic anemia Current Visit: Yes Status: Acute Plan to address problem: - I suspect anemia of chronic disease, but given the severity, he needs an EGD/colonoscopy; will plan for Wednesday. - He has significant cardiomyopathy (EF 30%), missed HD, a dysfunctional AVG, and fluid overload, as well as coagulopathy from meds; will defer endoscopy at present until approx Wednesday, after 1 more session of HD. - Plan hold coumadin and Plavix, continue HD here, and EGD/colon Wednesday if stabilized. - Transfuse as needed. - No gross blood loss or hematemesis; VSS; PO protonix is oK. Subjective Date of service: 06/15/22 Principal diagnosis: Anemia Interval history: The patient has had no bleeding overnight. He still feels bloated, but has no emesis or shortness of breath. No fevers. No pain in LUQ. Objective - Constitutional Vitals: Temp Pulse Resp BP Pulse Ox 98.9 F 68 16 132/71 96 06/15/22 06:03 06/15/22 06:02 06/14/22 23:56 06/15/22 06:02 06/15/22 07:55 General appearance: no acute distress - Respiratory Respiratory effort: normal Respiratory: bilateral: CTA - Cardiovascular Rhythm: regular Heart Sounds: Present: S1 & S2 - Gastrointestinal General gastrointestinal: Present: soft, non-tender, non-distended - Labs CBC & Chem 7: 06/14/22 05:09 06/15/22 05:39 Labs: Laboratory Results - last 24 hr 06/14/22 06/15/22 23:40 05:39 Sodium 142 Potassium 3.9 Chloride 101.0 Carbon Dioxide 27 Anion Gap 18 BUN 46 H Creatinine 10.2 H Estimated GFR 6 BUN/Creatinine Ratio 5 Glucose 107 H Calcium 8.3 L Phosphorus 3.50 Magnesium 2.20 Nasal Screen MRSA (PCR) Negative
[2022-06-15 08:46] LABS: INR 1.52 (0.87-1.13)
--- NOTE | 2022-06-15 09:58 | Progress Note ---
Assessment and Plan Impression: * End stage renal disease (home hemodialysis followed by Dr. Sanford Rodriguez) * Symptomatic anemia secondary to lack of SHASHANK vs GI loss * Hypertension * Secondary hyperparathyroidism Plan: * HD today * Note plans for EGD/colonoscopy today/tomorrow * Patient may require another fistulogram (patient reports recent fistulogram last week) if continues to have poor venous flows * Epogen 10k TIW prn * Renal diet * Dose medications for renal function * Transfuse pRBC prn Subjective Date of service: 06/15/22 Principal diagnosis: Anemia Interval history: No acute issues noted, patient sitting up in chair. Objective - Exam Narrative Exam: General appearance: well-developed, well-nourished EENT: ATNC Respiratory: Present: Clear to Ascultation Cardiology: regular, S1S2, other (SABIHA AV access +bruit) Gastrointestinal: no tenderness, no distended Integumentary: warm and dry Neurologic: alert and oriented x3 Musculoskeletal: other (no edema) Psychiatric: cooperative - Vital Signs Vital signs: Vital Signs - 12hr 06/14/22 06/14/22 06/14/22 22:00 23:55 23:56 Temperature 99.1 F Pulse Rate 70 70 Respiratory 16 Rate Blood Pressure 123/81 [Right] O2 Sat by Pulse 93 92 Oximetry 06/15/22 06/15/22 06/15/22 06:02 06:03 07:55 Temperature 98.9 F Pulse Rate 68 Respiratory Rate Blood Pressure 132/71 [Right] O2 Sat by Pulse 93 96 Oximetry - Lab 06/14/22 05:09 06/15/22 05:39 Most recent lab results Calcium 8.3 mg/dL (8.4-10.2) L 06/15/22 05:39 Phosphorus 3.50 mg/dL (2.5-4.5) 06/15/22 05:39 Magnesium 2.20 mg/dL (1.7-2.3) 06/15/22 05:39 Medications & Allergies - Medications Allergies/Adverse Reactions: Allergies Penicillins Allergy (Verified 03/08/22 17:44) Hives Home Medications: Home Medications Medication Instructions Recorded Confirmed Last Taken Type Cinacalcet HCl [Sensipar] 60 mg PO DAILY 03/09/22 06/14/22 03/07/22 History Clopidogrel [Plavix] 75 mg PO QDAY 03/09/22 06/14/22 Unknown History Diclofenac 1% [Diclofenac 1% 2 gm TP QDAY 03/09/22 06/14/22 Unknown History topical gel] Losartan [Cozaar] 100 mg PO BID 03/09/22 06/14/22 03/07/22 History NIFEdipine [Nifedipine ER] 90 mg PO DAILY 03/09/22 06/14/22 03/07/22 History Sevelamer Carbonate [Renvela] 800 mg PO TIDWM 03/09/22 06/14/22 03/07/22 History Warfarin [Coumadin] 3.75 mg PO 2XW 03/09/22 06/14/22 Unknown History Warfarin [Coumadin] 7.5 mg PO 5XW 03/09/22 06/14/22 03/07/22 History labetaloL [Labetalol 200mg TAB] 200 mg PO BID 03/09/22 06/14/22 Unknown History traMADoL [Ultram 50 MG tab] 50 mg PO Q6HR PRN 03/09/22 06/14/22 Unknown History Clopidogrel [Plavix] 75 mg PO QDAY tablet 03/10/22 06/14/22 Unknown Rx Gabapentin 300 mg PO TID capsule 03/10/22 06/14/22 Unknown Rx Losartan [Cozaar] 100 mg PO QDAY tablet 03/10/22 06/14/22 Unknown Rx NIFEdipine XL [Procardia Xl] 90 mg PO QDAY tablet 03/10/22 06/14/22 Unknown Rx Sevelamer Carbonate [Renvela] 2,400 mg PO AC tablet 03/10/22 06/14/22 Unknown Rx Warfarin [Coumadin] 7.5 mg PO ONCE@1700 tablet 03/10/22 06/14/22 Unknown Rx carvediloL [Coreg] 12.5 mg PO BID 30 Days #60 tablet 03/10/22 06/14/22 Unknown Rx Active Medications: Generic Name Dose Route Start Last Admin Trade Name Freq PRN Reason Stop Dose Admin Acetaminophen 650 mg 06/12/22 22:25 Acetaminophen 325 Mg Tab PO Q4H PRN Pain MILD(1-3)/Fever >100.5/[place] Calcitriol 0.25 mcg 06/13/22 10:00 06/14/22 09:21 Calcitriol 0.25 Mcg Cap PO 0.25 mcg QDAY ROMY Administration Carvedilol 12.5 mg 06/13/22 10:00 06/14/22 21:07 Carvedilol 12.5 Mg Tab PO 12.5 mg BID ROMY Administration Cinacalcet 60 mg 06/13/22 10:00 06/14/22 09:20 Cinacalcet 30 Mg Tab PO 60 mg QDAY ROMY Administration Epoetin Micha-epbx 10,000 unit 06/13/22 13:44 06/13/22 14:44 Epoetin Micha-Epbx 10,000 Unit/1 Ml Vial IV 10,000 unit SOPHIE PRN Administration hemodialysis Gabapentin 300 mg 06/13/22 08:00 06/14/22 19:25 Gabapentin 300 Mg Cap PO 300 mg TID ROMY Administration Sodium Chloride 100 mls @ 999 mls/hr 06/13/22 13:12 Nacl 0.9% IV SOPHIE PRN Hypotension Sodium Chloride 100 mls @ 999 mls/hr 06/14/22 18:41 Nacl 0.9% IV SOPHIE PRN Hypotension Labetalol HCl 200 mg 06/13/22 10:00 06/14/22 21:08 Labetalol 200 Mg Tab PO 200 mg BID ROMY Administration Losartan Potassium 100 mg 06/13/22 10:00 06/14/22 09:19 Losartan 50 Mg Tab PO 100 mg QDAY ROMY Administration Morphine Sulfate 2 mg 06/12/22 22:25 06/14/22 13:15 Morphine 2 Mg/1 Ml Inj IV 2 mg Q4H PRN Administration Pain, Moderate (4-6) Morphine Sulfate 4 mg 06/12/22 22:25 06/13/22 22:03 Morphine 4 Mg/1 Ml Inj IV 4 mg Q4H PRN Administration Pain , Severe (7-10) Nifedipine 90 mg 06/13/22 10:00 06/14/22 09:20 Nifedipine Xl 90 Mg Tab PO 90 mg QDAY ROMY Administration Ondansetron HCl 4 mg 06/12/22 22:25 06/14/22 17:31 Ondansetron 4 Mg/2 Ml Inj IV 4 mg Q8H PRN Administration Nausea And Vomiting Pantoprazole Sodium 40 mg 06/13/22 10:00 06/14/22 08:41 Pantoprazole 40 Mg Tab PO 40 mg QDAC ROMY Administration Polyethylene Glycol/Electrolytes 4,000 ml 06/15/22 16:00 Polyethylene Glycol/Elect Soln 4000 Ml PO 06/15/22 16:01 ONCE ONE Sevelamer Carbonate 800 mg 06/13/22 08:00 06/14/22 17:31 Sevelamer Carbonate 800 Mg Tab PO 800 mg TIDWM ROMY Administration Sodium Chloride 10 ml 06/13/22 10:00 06/14/22 21:08 Sodium Chloride 0.9% 10 Ml Flush Syringe IV 10 ml BID ROMY Administration Sodium Chloride 10 ml 06/12/22 22:25 Sodium Chloride 0.9% 10 Ml Flush Syringe IV PRN PRN LINE FLUSH
[2022-06-15] MEDS: EPOETIN ALFA-EPBX 10,000 UNIT/1 ML VIAL IV PRN (10:00)
[2022-06-15] MEDS: PANTOPRAZOLE 40 MG TAB PO SCH (11:11)
[2022-06-15] MEDS: GABAPENTIN 300 MG CAP PO SCH ×3 (11:13→21:23)
[2022-06-15] MEDS: SEVELAMER CARBONATE 800 MG TAB PO SCH ×4 (11:14→17:00)
[2022-06-15] MEDS: carvediloL 12.5 MG TAB PO SCH ×2 (11:14→21:24)
--- NOTE | 2022-06-15 14:21 | Consultation ---
History of Present Illness - Reason for Consult Consult date: 06/15/22 AV access malfunction Requesting physician: GENEVA RASHEED - History of Present Illness 62-year-old gentleman with a history of end-stage renal disease on home hemodialysis, left upper extremity fistula, triple-vessel CABG, PAD, stroke, and chronic warfarin therapy was brought to the ER today with multiple complaints, including abdominal cramping, black/dark stool, possible GI bleed, shortness of breath, malaise, fatigue, and report of his left upper extremity hemodialysis access fistula working improperly. In the emergency room patient is found to have a hemoglobin of 7.9 and hematocri t 22.9. PT 36.3 INR 3.04, BUN 55 creatinine 10.6, potassium 3.4 and proBNP 95474. Chest x-ray shows mild congestive heart failure/fluid overload. Nephrology is found poor venous flow and patient has had 2 angioplasties of the left upper extremity AV access. The first was normal and the second de monstrated collaterals at the level of the axilla. Patient has no hand pain, numbness, or weakness. Has weakly palpable left radial pulse. Ordered fistula ultrasound. Past History Past Medical History: acute ME, ESRD, heart failure, hypertension, stroke, other Past Surgical History: CABG, Other (Kidney transplant (2003; failed 2019)) Social history: no significant social history, lives with family. denies: alcohol abuse, prescription drug abuse Family history: hypertension (Peritoneal dialysis) Medications and Allergies Allergies Allergy/AdvReac Type Severity Reaction Status Date / Time Penicillins Allergy Hives Verified 03/08/22 17:44 Home Medications Medication Instructions Recorded Confirmed Last Taken Type Cinacalcet HCl [Sensipar] 60 mg PO DAILY 03/09/22 06/14/22 03/07/22 History Clopidogrel [Plavix] 75 mg PO QDAY 03/09/22 06/14/22 Unknown History Diclofenac 1% [Diclofenac 1% 2 gm TP QDAY 03/09/22 06/14/22 Unknown History topical gel] Losartan [Cozaar] 100 mg PO BID 03/09/22 06/14/22 03/07/22 History NIFEdipine [Nifedipine ER] 90 mg PO DAILY 03/09/22 06/14/22 03/07/22 History Sevelamer Carbonate [Renvela] 800 mg PO TIDWM 03/09/22 06/14/22 03/07/22 History Warfarin [Coumadin] 3.75 mg PO 2XW 03/09/22 06/14/22 Unknown History Warfarin [Coumadin] 7.5 mg PO 5XW 03/09/22 06/14/22 03/07/22 History labetaloL [Labetalol 200mg TAB] 200 mg PO BID 03/09/22 06/14/22 Unknown History traMADoL [Ultram 50 MG tab] 50 mg PO Q6HR PRN 03/09/22 06/14/22 Unknown History Clopidogrel [Plavix] 75 mg PO QDAY tablet 03/10/22 06/14/22 Unknown Rx Gabapentin 300 mg PO TID capsule 03/10/22 06/14/22 Unknown Rx Losartan [Cozaar] 100 mg PO QDAY tablet 03/10/22 06/14/22 Unknown Rx NIFEdipine XL [Procardia Xl] 90 mg PO QDAY tablet 03/10/22 06/14/22 Unknown Rx Sevelamer Carbonate [Renvela] 2,400 mg PO AC tablet 03/10/22 06/14/22 Unknown Rx Warfarin [Coumadin] 7.5 mg PO ONCE@1700 tablet 03/10/22 06/14/22 Unknown Rx carvediloL [Coreg] 12.5 mg PO BID 30 Days #60 tablet 03/10/22 06/14/22 Unknown Rx Active Meds: Active Medications Acetaminophen (Acetaminophen 325 Mg Tab) 650 mg PO Q4H PRN PRN Reason: Pain MILD(1-3)/Fever >100.5/[place] Calcitriol (Calcitriol 0.25 Mcg Cap) 0.25 mcg PO QDAY [facility] Last Admin: 06/14/22 09:21 Dose: 0.25 mcg Carvedilol (Carvedilol 12.5 Mg Tab) 12.5 mg PO BID [facility] Last Admin: 06/15/22 11:14 Dose: Not Given Cinacalcet (Cinacalcet 30 Mg Tab) 60 mg PO QDAY [facility] Last Admin: 06/14/22 09:20 Dose: 60 mg Epoetin Micha-epbx (Epoetin Micha-Epbx 10,000 Unit/1 Ml Vial) 10,000 unit IV SOPHIE PRN PRN Reason: hemodialysis Last Admin: 06/15/22 10:00 Dose: 10,000 unit Gabapentin (Gabapentin 300 Mg Cap) 300 mg PO TID [facility] Last Admin: 06/15/22 11:13 Dose: Not Given Sodium Chloride (Nacl 0.9%) 100 mls @ 999 mls/hr IV SOPHIE PRN PRN Reason: Hypotension Sodium Chloride (Nacl 0.9%) 100 mls @ 999 mls/hr IV SOPHIE PRN PRN Reason: Hypotension Labetalol HCl (Labetalol 200 Mg Tab) 200 mg PO BID [facility] Last Admin: 06/14/22 21:08 Dose: 200 mg Losartan Potassium (Losartan 50 Mg Tab) 100 mg PO QDAY [facility] Last Admin: 06/14/22 09:19 Dose: 100 mg Morphine Sulfate (Morphine 2 Mg/1 Ml Inj) 2 mg IV Q4H PRN PRN Reason: Pain, Moderate (4-6) Last Admin: 06/14/22 13:15 Dose: 2 mg Morphine Sulfate (Morphine 4 Mg/1 Ml Inj) 4 mg IV Q4H PRN PRN Reason: Pain , Severe (7-10) Last Admin: 06/13/22 22:03 Dose: 4 mg Nifedipine (Nifedipine Xl 90 Mg Tab) 90 mg PO QDAY [facility] Last Admin: 06/14/22 09:20 Dose: 90 mg Ondansetron HCl (Ondansetron 4 Mg/2 Ml Inj) 4 mg IV Q8H PRN PRN Reason: Nausea And Vomiting Last Admin: 06/14/22 17:31 Dose: 4 mg Pantoprazole Sodium (Pantoprazole 40 Mg Tab) 40 mg PO QDAC [facility] Last Admin: 06/15/22 11:11 Dose: Not Given Polyethylene Glycol/Electrolytes (Polyethylene Glycol/Elect Soln 4000 Ml) 4,000 ml PO ONCE ONE Stop: 06/15/22 16:01 Sevelamer Carbonate (Sevelamer Carbonate 800 Mg Tab) 800 mg PO TIDWM [facility] Last Admin: 06/15/22 11:14 Dose: Not Given Sodium Chloride (Sodium Chloride 0.9% 10 Ml Flush Syringe) 10 ml IV BID [facility] Last Admin: 06/15/22 11:15 Dose: Not Given Sodium Chloride (Sodium Chloride 0.9% 10 Ml Flush Syringe) 10 ml IV PRN PRN PRN Reason: LINE FLUSH Review of Systems All systems: negative (see HPI) Exam - Constitutional Vitals: Temp Pulse Resp BP Pulse Ox 98.9 F 70 16 167/81 98 06/15/22 10:44 06/15/22 10:45 06/15/22 10:44 06/15/22 10:45 06/15/22 10:44 General appearance: Present: no acute distress - EENT Eyes: Present: EOM intact ENT: hearing intact - Neck Neck: Present: supple - Respiratory Respiratory effort: normal - Extremities Extremities: normal temperature, normal color, abnormal (Thrill in left upper extremity AV fistula) - Abdominal General gastrointestinal: Present: soft, non-tender - Psychiatric Psychiatric: appropriate mood/affect, cooperative Results - Labs CBC & Chem 7: 06/14/22 05:09 06/15/22 05:39 Labs: Abnormal lab results 06/15/22 06/15/22 Range/Units 05:39 08:00 PT 20.2 H (12.2-14.9) Sec. INR 1.52 H (0.87-1.13) BUN 46 H (9-20) mg/dL Creatinine 10.2 H (0.8-1.3) mg/dL Glucose 107 H (75-100) mg/dL Calcium 8.3 L (8.4-10.2) mg/dL Assessment and Plan 62-year-old male with end-stage renal disease performing home dialysis with poor flow rates of unclear cause. Had outpatient fistulogram which was normal and second outpatient fistulogram demonstrating collaterals which required coiling. Ordered fistula ultrasound today. If abnormal, we will set patient up for fistulogram with angioplasty tomorrow. Discussed with patient. Agrees with plan. Risk, benefits, and alternatives discussed. Patient agrees with possible procedure.
[2022-06-15] MEDS: MORPHINE 2 MG/1 ML INJ IV PRN ×2 (15:00→20:28)
[2022-06-15] MEDS: CINACALCET 30 MG TAB PO SCH (15:18)
[2022-06-15] MEDS: LOSARTAN 50 MG TAB PO SCH (15:19)
[2022-06-15] MEDS: NIFEdipine XL 90 MG TAB PO SCH (15:21)
[2022-06-15] MEDS: CALCITRIOL 0.25 MCG CAP PO SCH (15:24)
[2022-06-15] MEDS ORDERED: POLYETHYLENE GLYCOL/ELECT SOLN 4000 ML PO ONE (16:00)
--- NOTE | 2022-06-15 17:58 | Vascular Lab Report ---
DOPPLER ULTRASOUND UPPER EXTREMITY VASCULAR, INDICATION / CLINICAL INFORMATION: assess AVF TECHNIQUE: Grayscale, color and spectral Doppler imaging of the venous system of the upper extremity was perform ed. COMPARISON: None available. FINDINGS: AV FISTULA - Location: Left upper extremity. SUBCLAVIAN JUNCTION PSV (cm/s): 101 DIAMETER (cm) / DEPTH (cm) / PSV (cm/s): - Upper Arm: 118 / 111 / 142 - Mid Arm: 336 / / - Lower Arm: 276 / / - Lower AV Fistula Anastomosis: 331 / --- / ARM PSV (cm/s) Post-Fistula Brachial Artery (cm/s): 312 Additional Findings: Flow volume 401-405 mL/m. IMPRESSION: 1. Patent AV fistula/graft with measurements as above. Signer Name: Israel Miner MD Signed: 06/15/2022 5:54 PM Workstation Name: [id number]
[2022-06-16 07:13] LABS: Basophils % (Auto) 1.1 % (0.0-1.8); Eosinophils # (Auto) 0.2 K/mm3 (0.0-0.4); Eosinophils % (Auto) 5.6 % (0.0-4.3); Hemoglobin 8.8 gm/dl (11.8-15.2); Lymphocytes # (Auto) 1.1 K/mm3 (1.2-5.4); Lymphocytes % (Auto) 26.3 % (13.4-35.0); Mean Corpuscular HGB Conc 34 % (32-34); Mean Corpuscular Volume 92 fl (84-94); Monocytes # (Auto) 0.4 K/mm3 (0.0-0.8); Monocytes % (Auto) 8.9 % (0.0-7.3); Platelet Count 214 K/mm3 (140-440); Red Blood Count 2.84 M/mm3 (3.65-5.03); Red Cell Distribution Width 17.5 % (13.2-15.2)
[2022-06-16 07:21] LABS: INR 1.19 (0.87-1.13)
[2022-06-16 07:22] LABS: Calcium 8.2 mg/dL (8.4-10.2)
[2022-06-16] MEDS: GABAPENTIN 300 MG CAP PO SCH ×3 (08:00→22:12)
[2022-06-16] MEDS: PANTOPRAZOLE 40 MG TAB PO SCH (08:00)
--- NOTE | 2022-06-16 09:29 | Progress Note ---
Assessment and Plan Impression: * End stage renal disease (home hemodialysis followed by Dr. Sanford Rordiguez) * Symptomatic anemia secondary to lack of SHASHANK vs GI loss * Hypertension * Secondary hyperparathyroidism Plan: * Continue HD MWF or prn * Note plans for EGD/colonoscopy tomorrow- will plan to hold HD tomorrow to allow for colonoscopy * Doppler of AVF patent, appreciate vascular input, no further evaluation needed * Epogen 10k TIW prn * Renal diet * Dose medications for renal function * Transfuse pRBC prn Subjective Date of service: 06/16/22 Principal diagnosis: Anemia Interval history: No acute issues noted, notes HD went well yesterday, no access issues. Undergoing bowel prep currently Objective - Exam Narrative Exam: General appearance: well-developed, well-nourished EENT: ATNC Respiratory: Present: Clear to Ascultation Cardiology: regular, S1S2, other (SABIHA AV access +bruit) Gastrointestinal: no tenderness, no distended Integumentary: warm and dry Neurologic: alert and oriented x3 Musculoskeletal: other (no edema) Psychiatric: cooperative - Vital Signs Vital signs: Vital Signs - 12hr 06/15/22 06/15/22 06/16/22 22:00 23:59 04:29 Temperature 98.2 F 98.6 F Pulse Rate 74 65 Blood Pressure 130/64 143/79 [Right] O2 Sat by Pulse 97 92 93 Oximetry - Lab 06/16/22 06:01 06/16/22 06:01 Most recent lab results Calcium 8.2 mg/dL (8.4-10.2) L 06/16/22 06:01 Phosphorus 3.50 mg/dL (2.5-4.5) 06/15/22 05:39 Magnesium 2.20 mg/dL (1.7-2.3) 06/15/22 05:39 Medications & Allergies - Medications Allergies/Adverse Reactions: Allergies Penicillins Allergy (Verified 03/08/22 17:44) Hives Home Medications: Home Medications Medication Instructions Recorded Confirmed Last Taken Type Cinacalcet HCl [Sensipar] 60 mg PO DAILY 03/09/22 06/14/22 03/07/22 History Clopidogrel [Plavix] 75 mg PO QDAY 03/09/22 06/14/22 Unknown History Diclofenac 1% [Diclofenac 1% 2 gm TP QDAY 03/09/22 06/14/22 Unknown History topical gel] Losartan [Cozaar] 100 mg PO BID 03/09/22 06/14/22 03/07/22 History NIFEdipine [Nifedipine ER] 90 mg PO DAILY 03/09/22 06/14/22 03/07/22 History Sevelamer Carbonate [Renvela] 800 mg PO TIDWM 03/09/22 06/14/22 03/07/22 History Warfarin [Coumadin] 3.75 mg PO 2XW 03/09/22 06/14/22 Unknown History Warfarin [Coumadin] 7.5 mg PO 5XW 03/09/22 06/14/22 03/07/22 History labetaloL [Labetalol 200mg TAB] 200 mg PO BID 03/09/22 06/14/22 Unknown History traMADoL [Ultram 50 MG tab] 50 mg PO Q6HR PRN 03/09/22 06/14/22 Unknown History Clopidogrel [Plavix] 75 mg PO QDAY tablet 03/10/22 06/14/22 Unknown Rx Gabapentin 300 mg PO TID capsule 03/10/22 06/14/22 Unknown Rx Losartan [Cozaar] 100 mg PO QDAY tablet 03/10/22 06/14/22 Unknown Rx NIFEdipine XL [Procardia Xl] 90 mg PO QDAY tablet 03/10/22 06/14/22 Unknown Rx Sevelamer Carbonate [Renvela] 2,400 mg PO AC tablet 03/10/22 06/14/22 Unknown Rx Warfarin [Coumadin] 7.5 mg PO ONCE@1700 tablet 03/10/22 06/14/22 Unknown Rx carvediloL [Coreg] 12.5 mg PO BID 30 Days #60 tablet 03/10/22 06/14/22 Unknown Rx Active Medications: Generic Name Dose Route Start Last Admin Trade Name Freq PRN Reason Stop Dose Admin Acetaminophen 650 mg 06/12/22 22:25 Acetaminophen 325 Mg Tab PO Q4H PRN Pain MILD(1-3)/Fever >100.5/[place] Calcitriol 0.25 mcg 06/13/22 10:00 06/15/22 15:24 Calcitriol 0.25 Mcg Cap PO 0.25 mcg QDAY ROMY Administration Carvedilol 12.5 mg 06/13/22 10:00 06/15/22 21:24 Carvedilol 12.5 Mg Tab PO 12.5 mg BID ROMY Administration Cinacalcet 60 mg 06/13/22 10:00 06/15/22 15:18 Cinacalcet 30 Mg Tab PO 60 mg QDAY ROMY Administration Epoetin Micha-epbx 10,000 unit 06/13/22 13:44 06/15/22 10:00 Epoetin Micha-Epbx 10,000 Unit/1 Ml Vial IV 10,000 unit SOPHIE PRN Administration hemodialysis Gabapentin 300 mg 06/13/22 08:00 06/15/22 21:23 Gabapentin 300 Mg Cap PO 300 mg TID ROMY Administration Sodium Chloride 100 mls @ 999 mls/hr 06/14/22 18:41 Nacl 0.9% IV SOPHIE PRN Hypotension Labetalol HCl 200 mg 06/13/22 10:00 06/15/22 21:24 Labetalol 200 Mg Tab PO 200 mg BID ROMY Administration Losartan Potassium 100 mg 06/13/22 10:00 06/15/22 15:19 Losartan 50 Mg Tab PO 100 mg QDAY ROMY Administration Morphine Sulfate 2 mg 06/12/22 22:25 06/15/22 20:28 Morphine 2 Mg/1 Ml Inj IV 2 mg Q4H PRN Administration Pain, Moderate (4-6) Morphine Sulfate 4 mg 06/12/22 22:25 06/13/22 22:03 Morphine 4 Mg/1 Ml Inj IV 4 mg Q4H PRN Administration Pain , Severe (7-10) Nifedipine 90 mg 06/13/22 10:00 06/15/22 15:21 Nifedipine Xl 90 Mg Tab PO 90 mg QDAY ROMY Administration Ondansetron HCl 4 mg 06/12/22 22:25 06/14/22 17:31 Ondansetron 4 Mg/2 Ml Inj IV 4 mg Q8H PRN Administration Nausea And Vomiting Pantoprazole Sodium 40 mg 06/13/22 10:00 06/15/22 11:11 Pantoprazole 40 Mg Tab PO Not Given QDAC ROMY Polyethylene Glycol 17 gm 06/16/22 10:00 Polyethylene Glycol 3350 17 Gm Powder PO 06/17/22 04:01 Q6H ORMY Sevelamer Carbonate 800 mg 06/13/22 08:00 06/15/22 17:00 Sevelamer Carbonate 800 Mg Tab PO Not Given TIDWM [facility] Sodium Chloride 10 ml 06/13/22 10:00 06/15/22 21:24 Sodium Chloride 0.9% 10 Ml Flush Syringe IV 10 ml BID ROMY Administration Sodium Chloride 10 ml 06/12/22 22:25 Sodium Chloride 0.9% 10 Ml Flush Syringe IV PRN PRN LINE FLUSH
--- NOTE | 2022-06-16 09:30 | Gastroenterology Progress Note ---
Assessment and Plan - Patient Problems (1) Symptomatic anemia Current Visit: Yes Status: Acute Plan to address problem: - I suspect anemia of chronic disease, but given the severity, he needs an EGD/colonoscopy; will plan for Wednesday after further prep. - He has significant cardiomyopathy (EF 30%), missed HD, a dysfunctional AVG, and fluid overload, as well as coagulopathy from meds. - Plan hold coumadin and Plavix, continue HD here, and EGD/colon Wednesday after further prep (HD after colonoscopy). - Transfuse as needed. - No gross blood loss or hematemesis; VSS; PO protonix is oK. - Orders written for further preparation. Subjective Date of service: 06/16/22 Principal diagnosis: Anemia Interval history: The patient has had no rectal bleeding, abdominal pain, or N/V overnight. He tolerated HD yesterday without event. He drank 2/3 of the prep, but only had 1 BM (has some constipation issues at home). Objective - Constitutional Vitals: Temp Pulse Resp BP Pulse Ox 98.6 F 65 16 143/79 93 06/16/22 04:29 06/16/22 04:29 06/15/22 19:58 06/16/22 04:29 06/16/22 04:29 General appearance: no acute distress - Respiratory Respiratory effort: normal Respiratory: bilateral: CTA - Cardiovascular Rhythm: regular Heart Sounds: Present: S1 & S2 - Gastrointestinal General gastrointestinal: Present: soft, non-tender, non-distended - Labs CBC & Chem 7: 06/16/22 06:01 06/16/22 06:01 Labs: Laboratory Results - last 24 hr 06/16/22 06/16/22 06/16/22 06:01 06:01 06:01 WBC 4.0 L RBC 2.84 L Hgb 8.8 L Hct 26.0 L MCV 92 MCH 31 MCHC 34 RDW 17.5 H Plt Count 214 Lymph % (Auto) 26.3 [place] % (Auto) 8.9 H Eos % (Auto) 5.6 H Baso % (Auto) 1.1 Lymph # (Auto) 1.1 L [place] # (Auto) 0.4 Eos # (Auto) 0.2 Baso # (Auto) 0.0 Seg Neutrophils % 58.1 Seg Neutrophils # 2.3 PT 16.5 H INR 1.19 H Sodium 144 Potassium 3.7 Chloride 101.6 Carbon Dioxide 26 Anion Gap 20 BUN 26 H Creatinine 7.0 H Estimated GFR 10 BUN/Creatinine Ratio 4 Glucose 96 Calcium 8.2 L
[2022-06-16] MEDS: carvediloL 12.5 MG TAB PO SCH ×2 (10:00→22:12)
[2022-06-16] MEDS ORDERED: HEPARIN 10,000 UNITS/10 ML VIAL ONE (11:58)
[2022-06-16] MEDS ORDERED: HEPARIN/NS 5000 UNIT/500ML 1,000 ML IR ONE (11:58)
[2022-06-16] MEDS ORDERED: SODIUM CHLORIDE 0.9% 250ML 250 ML ONE (12:07)
[2022-06-16] MEDS: LIDOCAINE 2%/EPINEPHRINE 1:200,000 VIAL (20 ML) INFILTRATI ONE ×2 (12:13→12:20)
[2022-06-16] MEDS: fentaNYL 100 MCG/2 ML INJ ONE ×4 (12:13→12:31)
[2022-06-16] MEDS: MIDAZOLAM 2 MG/2 ML INJ ONE ×4 (12:13→12:31)
--- NOTE | 2022-06-16 12:51 | Progress Note ---
Assessment and Plan Assessment and plan: #presumbed GI bleed #Melena #Acute on chronic anemia of chronic disease Hemoglobin stable at 8.8 s/p 1 unit packed RBC. - Transfuse if hemoglobin becomes <7 or patient become symptomatic Continue p.o. Protonix 40 mg daily and renal diet Gastroenterology consulted; appreciate recs. Planning for colonoscopy tomorrow. Continue CLD and will be NPO at midnight #ESRD on hemodialysis #Volume overload-improving #Uremia #Malfunctioning LUE AV fistula -Access: Left upper extremity fistulogram -Outpatient schedule: [facility]; last session 06/15 with 3L removed -Nephrology consulted; appreciate recs. -Renally dose medications and avoid nephrotoxic drugs. Renal diet. -continue calcitrol -Vascular Surgery following, plan for angioplasty today #Hypertension - home medications: Losartan 100 mg daily, Coreg 12.5 mg daily, labetalol 200 mg daily - current medications: Losartan 100 mg daily, Coreg 12.5 mg daily, labetalol 200 mg daily - SBP goal <160 and DBP goal <90 while inpatient - continue to monitor #History of acute ischemic CVA Continue goal-directed therapy. Holding home warfarin as the patient presented with melena and might need AV fistula repair. Warfarin can be restarted pending GI recommendations. #History of CABG Continue goal-directed therapy #Depression Psychiatry consulted; pending recs #Advanced care planning -Disease education conducted, care plan discussed, diagnoses discussed, prognosis discussed, and patient acknowledges understanding with care plan -Time: +30 min History Interval history: No acute events overnight. Patient reports been unable to tolerate bowel prep. Currently about to go to [facility] for vascular procedure. Patient updated about current care plan and plan for EGD/colonoscopy tomorrow. Hospitalist Physical - Physical exam Narrative exam: GENERAL: Well-developed well-nourished. In no acute distress. HEENT: Normocephalic. Atraumatic. NECK: Supple. CHEST/LUNGS: CTAB on room air HEART/CARDIOVASCULAR: RRR. No murmur, rubs or gallops appreciated. ABDOMEN: +BS. NT/ND. SKIN: No rashes noted. NEURO: No focal motor deficit. Follows all commands and is ambulatory. MUSCULOSKELETAL: No joint effusion EXTREMITIES: LUE AVF with thrill. No cyanosis, clubbing or edema. PSYCH: Cooperative. - Constitutional Vitals: Temp Pulse Resp BP Pulse Ox 98.6 F 116 H 16 143/79 93 06/16/22 04:29 06/16/22 07:00 06/15/22 19:58 06/16/22 04:29 06/16/22 04:29 General appearance: Present: no acute distress Results - Labs CBC & Chem 7: 06/16/22 06:01 06/16/22 06:01 Labs: Laboratory Last Values WBC 4.0 K/mm3 (4.5-11.0) L 06/16/22 06:01 RBC 2.84 M/mm3 (3.65-5.03) L 06/16/22 06:01 Hgb 8.8 gm/dl (11.8-15.2) L 06/16/22 06:01 Hct 26.0 % (35.5-45.6) L 06/16/22 06:01 MCV 92 fl (84-94) 06/16/22 06:01 MCH 31 pg (28-32) 06/16/22 06:01 MCHC 34 % (32-34) 06/16/22 06:01 RDW 17.5 % (13.2-15.2) H 06/16/22 06:01 Plt Count 214 K/mm3 (140-440) 06/16/22 06:01 Lymph % (Auto) 26.3 % (13.4-35.0) 06/16/22 06:01 [place] % (Auto) 8.9 % (0.0-7.3) H 06/16/22 06:01 Eos % (Auto) 5.6 % (0.0-4.3) H 06/16/22 06:01 Baso % (Auto) 1.1 % (0.0-1.8) 06/16/22 06:01 Lymph # (Auto) 1.1 K/mm3 (1.2-5.4) L 06/16/22 06:01 Andrew # (Auto) 0.4 K/mm3 (0.0-0.8) 06/16/22 06:01 Eos # (Auto) 0.2 K/mm3 (0.0-0.4) 06/16/22 06:01 Baso # (Auto) 0.0 K/mm3 (0.0-0.1) 06/16/22 06:01 Seg Neutrophils % 58.1 % (40.0-70.0) 06/16/22 06:01 Seg Neutrophils # 2.3 K/mm3 (1.8-7.7) 06/16/22 06:01 PT 16.5 Sec. (12.2-14.9) H 06/16/22 06:01 INR 1.19 (0.87-1.13) H 06/16/22 06:01 APTT 45.9 Sec. (24.2-36.6) H 06/12/22 19:43 Sodium 144 mmol/L (137-145) 06/16/22 06:01 Potassium 3.7 mmol/L (3.6-5.0) 06/16/22 06:01 Chloride 101.6 mmol/L (98-107) 06/16/22 06:01 Carbon Dioxide 26 mmol/L (22-30) 06/16/22 06:01 Anion Gap 20 mmol/L 06/16/22 06:01 BUN 26 mg/dL (9-20) H 06/16/22 06:01 Creatinine 7.0 mg/dL (0.8-1.3) H 06/16/22 06:01 Estimated GFR 10 ml/min 06/16/22 06:01 BUN/Creatinine Ratio 4 % 06/16/22 06:01 Glucose 96 mg/dL (75-100) 06/16/22 06:01 Calcium 8.2 mg/dL (8.4-10.2) L 06/16/22 06:01 Phosphorus 3.50 mg/dL (2.5-4.5) 06/15/22 05:39 Magnesium 2.20 mg/dL (1.7-2.3) 06/15/22 05:39 Total Bilirubin 0.50 mg/dL (0.1-1.2) 06/12/22 18:47 AST 11 units/L (5-40) 06/12/22 18:47 ALT 10 units/L (7-56) 06/12/22 18:47 Alkaline Phosphatase 125 units/L (35-129) 06/12/22 18:47 NT-Pro-B Natriuret Pep 64886 pg/mL (0-900) H 06/12/22 18:46 Total Protein 6.4 g/dL (6.3-8.2) 06/12/22 18:47 Albumin 4.4 g/dL (3.9-5) 06/12/22 18:47 Albumin/Globulin Ratio 2.2 % 06/12/22 18:47 Nasal Screen MRSA (PCR) Negative (Negative) 06/14/22 23:40 Hepatitis A IgM Ab Non-reactive (NonReactive) 06/13/22 14:00 Hep Bs Antigen Non-reactive (Negative) 06/13/22 14:00 Hep B Core IgM Ab Non-reactive (NonReactive) 06/13/22 14:00 Hepatitis C Antibody Non-reactive (NonReactive) 06/13/22 14:00 Blood Type A POSITIVE 06/12/22 19:50 Antibody Screen Negative 06/12/22 19:50 Crossmatch See Detail 06/12/22 19:50 Fiore/IV: Voiding Method Toilet Active Medications - Current Medications Current Medications: Generic Name Dose Route Start Last Admin Trade Name Freq PRN Reason Stop Dose Admin Acetaminophen 650 mg 06/12/22 22:25 Acetaminophen 325 Mg Tab PO Q4H PRN Pain MILD(1-3)/Fever >100.5/[place] Calcitriol 0.25 mcg 06/13/22 10:00 06/15/22 15:24 Calcitriol 0.25 Mcg Cap PO 0.25 mcg QDAY ROMY Administration Carvedilol 12.5 mg 06/13/22 10:00 06/15/22 21:24 Carvedilol 12.5 Mg Tab PO 12.5 mg BID ROMY Administration Cinacalcet 60 mg 06/13/22 10:00 06/15/22 15:18 Cinacalcet 30 Mg Tab PO 60 mg QDAY ROMY Administration Epoetin Micha-epbx 10,000 unit 06/13/22 13:44 06/15/22 10:00 Epoetin Micha-Epbx 10,000 Unit/1 Ml Vial IV 10,000 unit SOPHIE PRN Administration hemodialysis Gabapentin 300 mg 06/13/22 08:00 06/15/22 21:23 Gabapentin 300 Mg Cap PO 300 mg TID ROMY Administration Sodium Chloride 100 mls @ 999 mls/hr 06/14/22 18:41 Nacl 0.9% IV SOPHIE PRN Hypotension Labetalol HCl 200 mg 06/13/22 10:00 06/15/22 21:24 Labetalol 200 Mg Tab PO 200 mg BID ROMY Administration Losartan Potassium 100 mg 06/13/22 10:00 06/15/22 15:19 Losartan 50 Mg Tab PO 100 mg QDAY ROMY Administration Morphine Sulfate 2 mg 06/12/22 22:25 06/15/22 20:28 Morphine 2 Mg/1 Ml Inj IV 2 mg Q4H PRN Administration Pain, Moderate (4-6) Morphine Sulfate 4 mg 06/12/22 22:25 06/13/22 22:03 Morphine 4 Mg/1 Ml Inj IV 4 mg Q4H PRN Administration Pain , Severe (7-10) Nifedipine 90 mg 06/13/22 10:00 06/15/22 15:21 Nifedipine Xl 90 Mg Tab PO 90 mg QDAY ROMY Administration Ondansetron HCl 4 mg 06/12/22 22:25 06/14/22 17:31 Ondansetron 4 Mg/2 Ml Inj IV 4 mg Q8H PRN Administration Nausea And Vomiting Pantoprazole Sodium 40 mg 06/13/22 10:00 06/15/22 11:11 Pantoprazole 40 Mg Tab PO Not Given QDAC ROMY Polyethylene Glycol 17 gm 06/16/22 12:00 Polyethylene Glycol 3350 17 Gm Powder PO 06/17/22 06:01 Q6H ROMY Sevelamer Carbonate 800 mg 06/13/22 08:00 06/15/22 17:00 Sevelamer Carbonate 800 Mg Tab PO Not Given TIDWM ROMY Sodium Chloride 10 ml 06/13/22 10:00 06/15/22 21:24 Sodium Chloride 0.9% 10 Ml Flush Syringe IV 10 ml BID ROMY Administration Sodium Chloride 10 ml 06/12/22 22:25 Sodium Chloride 0.9% 10 Ml Flush Syringe IV PRN PRN LINE FLUSH
--- NOTE | 2022-06-16 13:27 | Operative Report ---
Operative Report Operative Report: EXAM: 1. Ultrasound guided access of the left arm AV cephalic vein (brachial artery cephalic vein fistula) 2. Placement of a sheath towards the anastomosis (retrograde access) 3. Fistulogram 4. Selection of the brachial artery in a retrograde fashion with angiography 5. Angioplasty of the peripheral dialysis access at the peripheral cephalic vein with an 8 mm x 80 mm angioplasty balloon and 9 mm x 60 mm angioplasty balloon 6. Angioplasty of the anastomosis with a 6 mm x 40 mm angioplasty balloon 7. Selection of the sidebranch from the mid cephalic vein with angiography 8. Coil embolization of the sidebranch from the mid cephalic vein with a 6 mm x 10 cm interlock coil and 6 mm x 20 cm interlock coil DATE: 06/16/2022 [employer]: ERICK ANDRE MD INDICATION: Low flow rates (400s mL/min) in the AV fistula with difficulty with cannulation and clearances and fluid overload MEDICATIONS: Please see nursing report for full details. DEVICES: 6 mm x 40 mm angioplasty balloon 8 mm x 80 mm angioplasty balloon 9 mm x 60 mm angioplasty balloon Interlock coils in left mid cephalic vein sidebranch (6 mm x 10 cm interlock, and 6 mm x 20 cm interlock). PROCEDURE: The risks, benefits, and alternatives of the procedure were discussed and written informed consent was obtained. The patient was transported in stable condition to the angiography suite. The patient's left arm AV fistula was assessed by ultrasound and was patent. The patient was prepped and draped in a sterile fashion. Under ultrasound guidance, the left arm AV fistula was accessed with a 21-gauge micropuncture needle. The area was anesthetized prior to access. 0.018 inch wire was advanced through the micropuncture needle into the fistula and then the needle was exchanged for a 5 [place] transitional dilator. The inner dilator and wire were removed and a 0.035 inch wire was advanced through the fistula. The transitional dilator was exchanged for a 6 [place] short sheath. Fistulogram was performed of the venous outflow and central veins. Reflux into the arterial anastomosis was performed. Digital subtraction angiography demonstrated a 30 to 40% stenosis at the arterial anastomosis, diffuse 50% stenosis at the peripheral to mid cephalic vein, large mid cephalic vein collateral, and patency of the central cephalic vein and cephalic arch. The left subclavian vein, innominate vein, and SVC were patent. Wire and catheter were used to select the brachial artery in a retrograde fashion and digital subtraction angiography was performed demonstrating irregularity of the brachial artery with 20% to 30% stenosis and scattered areas with 30 to 40% stenosis at the arterial anastomosis. 8 mm x 80 mm angioplasty balloon was used to perform angioplasty of the peripheral cephalic vein which was then followed with a 9 mm x 60 mm angioplasty balloon. 6 mm x 40 mm angioplasty balloon was used to perform angioplasty of the arterial anastomosis. Digital subtraction angiography demonstrated prompt flow through the fistula with less than 10% residual narrowing of the arterial anastomosis and throughout the cephalic vein. Sidebranch was then selected with an angled catheter and digital subtraction angiography was performed confirming position. No 0.035 inch pushable coils were available and therefore a microcatheter was advanced through the base catheter. 6 mm x 10 cm interlock coil was then deployed in the sidebranch which was followed with a 6 mm x 20 cm interlock coil. Digital subtraction angiography was performed demonstrating coils well- positioned in the sidebranch which already had decreased blood flow, and which should thrombose in the next hour. The rest of the AV fistula was unchanged. The wire was removed and the site was closed with a 3-0 Vicryl suture. The sheath was then removed. Hemostasis was achieved with slight manual compression. Sterile bandage applied. The old stitch was then removed with iris scissors. The patient was transported from the aniography suite to the floor in stable condition. IMPRESSION: Successful peripheral dialysis access angioplasty. Successful coiling of a sidebranch of the AV fistula. Successful selection of the sidebranch of the AV fistula
--- NOTE | 2022-06-16 14:48 | Event Note ---
Date: 06/16/22 Patient underwent successful angioplasty of peripheral dialysis access with coiling of the sidebranch. Hopefully will be no further issues with dialysis. Follow-up with Dr. Boucher.
[2022-06-16] MEDS: POLYETHYLENE GLYCOL 3350 17 GM POWDER PO SCH ×2 (17:00→22:12)
[2022-06-16] MEDS: CINACALCET 30 MG TAB PO SCH (17:39)
[2022-06-16] MEDS: NIFEdipine XL 90 MG TAB PO SCH (17:39)
[2022-06-16] MEDS: SEVELAMER CARBONATE 800 MG TAB PO SCH (17:39)
[2022-06-16] MEDS: CALCITRIOL 0.5 MCG CAP PO SCH (17:45)
[2022-06-17] MEDS: POLYETHYLENE GLYCOL 3350 17 GM POWDER PO SCH ×2 (01:04→05:01)
[2022-06-17 06:12] LABS: Calcium 8.6 mg/dL (8.4-10.2)
[2022-06-17] MEDS ORDERED: WATER FOR IRRIG STERILE 1,000 ML BOTTLE ONE (08:40)
[2022-06-17] MEDS ORDERED: WATER FOR IRRIG STERILE 250 ML BOTTLE IR ONE (08:40)
[2022-06-17] MEDS ORDERED: SODIUM CHLORIDE 0.9% 1000 ML 1,000 ML ONE (08:51)
--- NOTE | 2022-06-17 08:53 | Anesthesia Consultation ---
Anesthesia Consult and Med Hx Date of service: 06/17/22 - Airway Anesthetic Teeth Evaluation: Poor (multiple missing teeth) ROM Head & Neck: Adequate Mental/Hyoid Distance: Adequate Mallampati Class: Class II Intubation Access Assessment: Probably Good - Pre-Operative Health Status ASA Pre-Surgery Classification: ASA3 Proposed Anesthetic Plan: MAC - Cardiovascular System Hx Hypertension: Yes Hx Coronary Artery Disease: Yes (CABG x 3, EF-30%) Hx Heart Attack/AMI: Yes Hx Peripheral Vascular Disease: Yes - Central Nervous System CVA: Yes Hx Back Pain: Yes - Gastrointestinal Hx Ulcer: Yes (GI bleed) Hx Gastroesophageal Reflux Disease: Yes - Endocrine Hx Renal Disease: Yes (peritoneal) Hx End Stage Renal Disease: Yes - Hematic Hx Anemia: Yes - Other Systems Hx Substance Use: Yes (marijuana)
--- NOTE | 2022-06-17 08:55 | Anesthesia Day of Surgery ---
Anesthesia Day of Surgery - Day of Surgery Patient Examined: Yes Patient H&P Reviewed: Yes Patient is NPO: Yes
[2022-06-17] MEDS ORDERED: propofoL 200 MG/20 ML VIAL IV ONE (09:11)
--- NOTE | 2022-06-17 09:46 | Post Operative Note ---
Pre-op diagnosis: Sympatomatic Anemia Post-op diagnosis: other (Colon polyp, tics, IH, HH, Barretts) Findings: 1. No blood in upper or lower GI tract 2. Nml duodenum 3. Small hiatal hernia 4. 4mm tongue of probable barretts lower third esophagus, cold bx 5. Fair prep colon (semi-liquid stool) 6. Pancolonic diverticulosis 7. 4mm transverse colon polyp, cold snare polypectomy 8. Internal hemorrhoids, Grade I Procedure: EGD with cold biopsy; Colonoscopy with cold snare polypectomy Anesthesia: MAC Surgeon: EVITA MACHADO Estimated blood loss: minimal Pathology: list (1. Esophagus, r/o barretts. 2. Transverse colon polyp) Specimen disposition: to lab Condition: stable Disposition: floor (Recs: 1. Anemia likely from ESRD. 2. OK to discharge home per our service; we will sign off. 3. Will resume anticoagulation today. May resume regular diet.)
[2022-06-17] MEDS: LOSARTAN 50 MG TAB PO SCH (11:01)
[2022-06-17] MEDS: PANTOPRAZOLE 40 MG TAB PO SCH (11:02)
[2022-06-17] MEDS: CINACALCET 30 MG TAB PO SCH (11:02)
[2022-06-17] MEDS: SEVELAMER CARBONATE 800 MG TAB PO SCH ×3 (11:02→18:55)
[2022-06-17] MEDS: CLOPIDOGREL 75 MG TAB PO SCH (11:02)
[2022-06-17] MEDS: GABAPENTIN 300 MG CAP PO SCH ×3 (11:02→20:30)
[2022-06-17] MEDS: CALCITRIOL 0.5 MCG CAP PO SCH (11:02)
[2022-06-17] MEDS: carvediloL 12.5 MG TAB PO SCH ×2 (11:03→21:26)
[2022-06-17] MEDS: NIFEdipine XL 90 MG TAB PO SCH (11:03)
[2022-06-17] MEDS: MORPHINE 2 MG/1 ML INJ IV PRN ×2 (11:03→18:55)
--- NOTE | 2022-06-17 11:20 | Operative Report ---
DATE OF SURGERY: 06/17/2022 PROCEDURE PERFORMED: Esophagogastroduodenoscopy with cold biopsy and colonoscopy with cold snare polypectomy. PREOPERATIVE DIAGNOSIS: Symptomatic anemia. POSTOPERATIVE DIAGNOSES: Colon polyp, diverticulosis, hemorrhoids, probable Baker's esophagus. ENDOSCOPIST: Devin Mario M.D. INSTRUMENT: The Olympus video endoscope. MEDICATIONS: MAC anesthesia by anesthesia services. COMPLICATIONS: No apparent complications. ESTIMATED BLOOD LOSS: Minimal. SPECIMENS: 1. Lower third of the esophagus, rule out Baker's. 2. Transverse colon polyp. IMPLANTS: None. ASSISTANTS: None. CONDITION AT COMPLETION: Stable. DESCRIPTION OF PROCEDURE: The patient was informed of the risks and benefits of the procedure. He signed the informed consent to proceed. He was placed in the left lateral decubitus position. The above sedative medications were given. His vital signs remained stable throughout the procedure. The instrument was advanced from the mouth to the second portion of the duodenum under direct visualization. At that point, the bowel was insufflated and the endoscope was slowly withdrawn. The bed was then rotated and the colonoscope was advanced from the anus to the cecum under direct visualization. The cecum was identified by the appendiceal orifice and the ileocecal valve. At that point, the bowel was insufflated and the endoscope was slowly withdrawn. The quality of preparation was fair with some liquid brown stool throughout the colon that was lavaged as possible. FINDINGS: 1. No blood or active bleeding noted in the upper or lower gastrointestinal tract. 2. Normal duodenum. 3. Small hiatal hernia present. 4. A 4 mm tongue of probable Baker's esophagus extending from the GE junction into the lower third, status post cold biopsy; the mucosa appeared normal. 5. Fair preparation of the colon with semi-liquid stool present throughout; lavaged as possible with good clearance. 6. Pancolonic diverticulosis. 7. A 4 mm transverse colon polyp, status post cold snare polypectomy. 8. Internal hemorrhoids, grade 1. RECOMMENDATIONS: 1. The patient's anemia is likely due to the end-stage renal disease. There is no convincing evidence of gastrointestinal blood loss. 2. We will resume anticoagulation today as well as a regular diet. 3. The patient should be on MiraLax daily therapy given his chronic constipation. 4. Okay to discharge home per our service; we will sign off, please call as needed. TID: [id number] RECEIPT: [id number] GUALBERTO/KELLIE
--- NOTE | 2022-06-17 11:44 | Post Anesthesia Evaluation ---
- Post Anesthesia Evaluation Patient Participated: Yes Airway Patent: Yes Nausea/Vomiting: No Temp > 96.8F: Yes Pain Manageable: Yes Adequeate Hydration: Yes Anesthesia Complications: No
--- NOTE | 2022-06-17 12:00 | Consultation ---
History of Present Illness - Reason for Consult Consult date: 06/17/22 Reason for consult: depression - History of Present Psychiatric Illness HPI: This is a 62-year-old gentleman with a history of end-stage renal disease on home hemodialysis, left upper extremity fistula, triple-vessel CABG, PAD, stroke, and chronic warfarin therapy. He presents to the ER today with multiple complaints, including abdominal cramping, black/dark stool, possible GI bleed, shortness of breath, malaise, fatigue, and report of his left upper extremity hemodialysis access fistula working improperly. The patient was seen today. Psych was consulted on this patient for depression. The patient's twin sister is at bedside. She gets up to leave but the patient begs her to stay during the evaluation. The patient is a/o x 3. He's calm and cooperative. He's conversational. The patient states that he's on dialysis and he's tired of it. He says "I just want to ." He says he was given a kidney about 15 years ago from his son. He says but it went bad. He says his son did not take care of himself, so now his son has stage III kidney failure. The patient says he's depressed about his life being this way. He says he has never seen a psychiatrist in the past but saw a therapist for depression. He denies being on any psych meds, but states he was on an antidepressant years ago, but it made him sick. He could not recall the name of it. The patient says he doesn't sleep well at night. He denies any past attempt of suicide or any hallucinations. The patient's sister says he gets mad at her and their mother easily and always threaten them that he's going to hospice. The patient says "that's because I have several friends I used to work with who had the same thing and they went hospice." The patient says he's going to try and do better with what health he has. He says "I do know some people who have been on dialysis for a long time, at least 15 years." PAST PSYCHIATRIC HISTORY: Diagnoses: Depression Suicide attempts or Self-harm behavior: Denies Prior psychiatric hospitalizations: Denies Substance Abuse history: Denies Previous psychiatric medications tried: could not recall name Outpatient treatment: Yes PAST MEDICAL HISTORY: DM, ESRD with dialysis Family Psychiatric History: None reported or documented SOCIAL HISTORY Marital Status: Single Living Arrangements: alone Employment Status: Disabled Access to guns/weapons: Denies Education: History of Abuse: Denies Legal History: Denies ROS: Constitutional: Negative for weight loss ENT: Negative for stridor Respiratory: Negative for cough or hemoptysis All other systems reviewed and are negative MENTAL STATUS General Appearance and Behavior: age appropriate, calm, cooperative, polite Psychomotor Behavior: within normal limits Mood: depressed Affect and affective range: congruent with stated mood Thought Process: goal oriented Thought Content: within reality Speech: Normal volume and Regular rate and rhythm Suicidal Ideation: passive Homicidal Ideation: Denies Hallucinations: Denies Delusions: None elicited Impulse Control: Normal Insight and Judgment: Limited Memory: Limited Attention: Attentive Orientation: alert/oriented Assessment Major Depressive Disorder Treatment Plan Celexa 10mg po daily Melatonin 10mg po qhs Medical: per primary Sitter: defer to primary Disposition: Do not recommend acute psychiatric inpatient treatment Will follow. Thanks. Case staffed by Dr. Tate Medications and Allergies Allergies Allergy/AdvReac Type Severity Reaction Status Date / Time Penicillins Allergy Hives Verified 03/08/22 17:44 Home Medications Medication Instructions Recorded Confirmed Last Taken Type Cinacalcet HCl [Sensipar] 60 mg PO DAILY 03/09/22 06/14/22 03/07/22 History Diclofenac 1% [Diclofenac 1% 2 gm TP QDAY 03/09/22 06/14/22 Unknown History topical gel] NIFEdipine [Nifedipine ER] 90 mg PO DAILY 03/09/22 06/14/22 03/07/22 History Warfarin [Coumadin] 7.5 mg PO 5XW 03/09/22 06/14/22 03/07/22 History labetaloL [Labetalol 200mg TAB] 200 mg PO BID 03/09/22 06/14/22 Unknown History traMADoL [Ultram 50 MG tab] 50 mg PO Q6HR PRN 03/09/22 06/14/22 Unknown History Clopidogrel [Plavix] 75 mg PO QDAY tablet 03/10/22 06/14/22 Unknown Rx Gabapentin 300 mg PO TID capsule 03/10/22 06/14/22 Unknown Rx Sevelamer Carbonate [Renvela] 2,400 mg PO AC tablet 03/10/22 06/14/22 Unknown Rx Losartan [Cozaar] 50 mg PO QDAY 06/16/22 06/16/22 Unknown History Warfarin [Coumadin] 5 mg PO 2XW 06/16/22 06/16/22 Unknown History calcitrioL [Rocaltrol] 1 mcg PO DAILY 06/16/22 06/16/22 Unknown History Active Meds: Active Medications Acetaminophen (Acetaminophen 325 Mg Tab) 650 mg PO Q4H PRN PRN Reason: Pain MILD(1-3)/Fever >100.5/[place] Calcitriol (Calcitriol 0.5 Mcg Cap) 1 mcg PO DAILY [facility] Last Admin: 06/17/22 11:02 Dose: 1 mcg Carvedilol (Carvedilol 12.5 Mg Tab) 12.5 mg PO BID [facility] Last Admin: 06/17/22 11:03 Dose: 12.5 mg Cinacalcet (Cinacalcet 30 Mg Tab) 60 mg PO QDAY [facility] Last Admin: 06/17/22 11:02 Dose: 60 mg Clopidogrel Bisulfate (Clopidogrel 75 Mg Tab) 75 mg PO QDAY [facility] Epoetin Micha-epbx (Epoetin Micha-Epbx 10,000 Unit/1 Ml Vial) 10,000 unit IV SOPHIE PRN PRN Reason: hemodialysis Last Admin: 06/15/22 10:00 Dose: 10,000 unit Gabapentin (Gabapentin 300 Mg Cap) 300 mg PO TID [facility] Last Admin: 06/17/22 11:02 Dose: 300 mg Labetalol HCl (Labetalol 200 Mg Tab) 200 mg PO BID [facility] Last Admin: 06/17/22 11:02 Dose: 200 mg Losartan Potassium (Losartan 50 Mg Tab) 50 mg PO QDAY [facility] Last Admin: 06/17/22 11:01 Dose: 50 mg Morphine Sulfate (Morphine 2 Mg/1 Ml Inj) 2 mg IV Q4H PRN PRN Reason: Pain, Moderate (4-6) Last Admin: 06/17/22 11:03 Dose: 2 mg Morphine Sulfate (Morphine 4 Mg/1 Ml Inj) 4 mg IV Q4H PRN PRN Reason: Pain , Severe (7-10) Last Admin: 06/13/22 22:03 Dose: 4 mg Nifedipine (Nifedipine Xl 90 Mg Tab) 90 mg PO QDAY [facility] Last Admin: 06/17/22 11:03 Dose: 90 mg Ondansetron HCl (Ondansetron 4 Mg/2 Ml Inj) 4 mg IV Q8H PRN PRN Reason: Nausea And Vomiting Last Admin: 06/14/22 17:31 Dose: 4 mg Pantoprazole Sodium (Pantoprazole 40 Mg Tab) 40 mg PO QDAC [facility] Last Admin: 06/17/22 11:02 Dose: 40 mg Polyethylene Glycol (Polyethylene Glycol 3350 17 Gm Powder) 17 gm PO QDAY [facility] Sevelamer Carbonate (Sevelamer Carbonate 800 Mg Tab) 2,400 mg PO AC [facility] Last Admin: 06/17/22 11:02 Dose: 2,400 mg Sodium Chloride (Sodium Chloride 0.9% 10 Ml Flush Syringe) 10 ml IV BID [facility] Last Admin: 06/17/22 11:03 Dose: 10 ml Sodium Chloride (Sodium Chloride 0.9% 10 Ml Flush Syringe) 10 ml IV PRN PRN PRN Reason: LINE FLUSH Warfarin Sodium (Warfarin 5 Mg Tab) 5 mg PO DAILY@1700 [facility]Y; Protocol Mental Status Exam - Vital signs Last Vital Signs Temp 98.2 F 06/17/22 11:40 Pulse 65 06/17/22 11:40 Resp 18 06/17/22 11:40 BP 144/67 06/17/22 11:40 Pulse Ox 94 06/17/22 11:40 Results Result Diagrams: 06/16/22 06:01 06/17/22 05:32 Abnormal lab results 06/17/22 Range/Units 05:32 Chloride 97.5 L (98-107) mmol/L BUN 34 H (9-20) mg/dL Creatinine 8.5 H (0.8-1.3) mg/dL Glucose 119 H (75-100) mg/dL All other labs normal.
--- NOTE | 2022-06-17 12:13 | Progress Note ---
Assessment and Plan Assessment and plan: #presumbed GI bleed #Melena #Acute on chronic anemia of chronic disease Hemoglobin stable s/p 1 unit packed RBC. - Transfuse if hemoglobin becomes <7 or patient become symptomatic Continue p.o. Protonix 40 mg daily and renal diet - Colonoscopy performed today, operative note reviewed #ESRD on hemodialysis #Volume overload-improving #Uremia #Malfunctioning LUE AV fistula -Access: Left upper extremity fistulogram -Outpatient schedule: MWF; last session 06/15 with 3L removed -Nephrology consulted; appreciate recs. -Renally dose medications and avoid nephrotoxic drugs. Renal diet. -continue calcitrol -s/p Angioplasty of AVF w/ coiling -CM consulted for outpatient HD #Hypertension - home medications: Losartan 100 mg daily, Coreg 12.5 mg daily, labetalol 200 mg daily - current medications: Losartan 100 mg daily, Coreg 12.5 mg daily, labetalol 200 mg daily - SBP goal <160 and DBP goal <90 while inpatient - continue to monitor #History of acute ischemic CVA Continue goal-directed therapy. Holding home warfarin as the patient presented with melena and might need AV fistula repair. Warfarin can be restarted pending GI recommendations. #History of CABG Continue goal-directed therapy #Depression Psychiatry consulted; pending recs #Advanced care planning -Disease education conducted, care plan discussed, diagnoses discussed, prognosis discussed, and patient acknowledges understanding with care plan -Time: +30 min #Discharge planning -Patient currently doing home hemodialysis. His sister was the person who would hook him up to the machine during his sessions. She was at the bedside and expressed that she would no longer be performing any until she had more training. Patient at this time would like to have outpatient hemodialysis at this time. Case management notified. History Interval history: No acute events overnight. Patient returned from hemodialysis. Discussed current care plan with the patient and his sister at bedside. He reports gas pains after colonoscopy. He has no other complaints at this time. Hospitalist Physical - Physical exam Narrative exam: GENERAL: Well-developed well-nourished. In no acute distress. HEENT: Normocephalic. Atraumatic. CHEST/LUNGS: CTAB on room air HEART/CARDIOVASCULAR: RRR. No murmur, rubs or gallops appreciated. ABDOMEN: +BS. NT/ND. NEURO: No focal motor deficit. Follows all commands. MUSCULOSKELETAL: No joint effusion EXTREMITIES: LUE AVF with thrill. No cyanosis, clubbing or edema. PSYCH: Cooperative. - Constitutional Vitals: Temp Pulse Resp BP Pulse Ox 98.2 F 65 18 144/67 94 06/17/22 11:40 06/17/22 11:40 06/17/22 11:40 06/17/22 11:40 06/17/22 11:40 General appearance: Present: no acute distress Results - Labs CBC & Chem 7: 06/16/22 06:01 06/17/22 05:32 Labs: Laboratory Last Values WBC 4.0 K/mm3 (4.5-11.0) L 06/16/22 06:01 RBC 2.84 M/mm3 (3.65-5.03) L 06/16/22 06:01 Hgb 8.8 gm/dl (11.8-15.2) L 06/16/22 06:01 Hct 26.0 % (35.5-45.6) L 06/16/22 06:01 MCV 92 fl (84-94) 06/16/22 06:01 MCH 31 pg (28-32) 06/16/22 06:01 MCHC 34 % (32-34) 06/16/22 06:01 RDW 17.5 % (13.2-15.2) H 06/16/22 06:01 Plt Count 214 K/mm3 (140-440) 06/16/22 06:01 Lymph % (Auto) 26.3 % (13.4-35.0) 06/16/22 06:01 [place] % (Auto) 8.9 % (0.0-7.3) H 06/16/22 06:01 Eos % (Auto) 5.6 % (0.0-4.3) H 06/16/22 06:01 Baso % (Auto) 1.1 % (0.0-1.8) 06/16/22 06:01 Lymph # (Auto) 1.1 K/mm3 (1.2-5.4) L 06/16/22 06:01 [place] # (Auto) 0.4 K/mm3 (0.0-0.8) 06/16/22 06:01 Eos # (Auto) 0.2 K/mm3 (0.0-0.4) 06/16/22 06:01 Baso # (Auto) 0.0 K/mm3 (0.0-0.1) 06/16/22 06:01 Seg Neutrophils % 58.1 % (40.0-70.0) 06/16/22 06:01 Seg Neutrophils # 2.3 K/mm3 (1.8-7.7) 06/16/22 06:01 PT 16.5 Sec. (12.2-14.9) H 06/16/22 06:01 INR 1.19 (0.87-1.13) H 06/16/22 06:01 APTT 45.9 Sec. (24.2-36.6) H 06/12/22 19:43 Sodium 139 mmol/L (137-145) 06/17/22 05:32 Potassium 4.0 mmol/L (3.6-5.0) 06/17/22 05:32 Chloride 97.5 mmol/L (98-107) L 06/17/22 05:32 Carbon Dioxide 26 mmol/L (22-30) 06/17/22 05:32 Anion Gap 20 mmol/L 06/17/22 05:32 BUN 34 mg/dL (9-20) H 06/17/22 05:32 Creatinine 8.5 mg/dL (0.8-1.3) H 06/17/22 05:32 Estimated GFR 8 ml/min 06/17/22 05:32 BUN/Creatinine Ratio 4 % 06/17/22 05:32 Glucose 119 mg/dL (75-100) H 06/17/22 05:32 Calcium 8.6 mg/dL (8.4-10.2) 06/17/22 05:32 Phosphorus 3.50 mg/dL (2.5-4.5) 06/15/22 05:39 Magnesium 2.20 mg/dL (1.7-2.3) 06/15/22 05:39 Total Bilirubin 0.50 mg/dL (0.1-1.2) 06/12/22 18:47 AST 11 units/L (5-40) 06/12/22 18:47 ALT 10 units/L (7-56) 06/12/22 18:47 Alkaline Phosphatase 125 units/L (35-129) 06/12/22 18:47 NT-Pro-B Natriuret Pep 77486 pg/mL (0-900) H 06/12/22 18:46 Total Protein 6.4 g/dL (6.3-8.2) 06/12/22 18:47 Albumin 4.4 g/dL (3.9-5) 06/12/22 18:47 Albumin/Globulin Ratio 2.2 % 06/12/22 18:47 Nasal Screen MRSA (PCR) Negative (Negative) 06/14/22 23:40 Hepatitis A IgM Ab Non-reactive (NonReactive) 06/13/22 14:00 Hep Bs Antigen Non-reactive (Negative) 06/13/22 14:00 Hep B Core IgM Ab Non-reactive (NonReactive) 06/13/22 14:00 Hepatitis C Antibody Non-reactive (NonReactive) 06/13/22 14:00 Blood Type A POSITIVE 06/12/22 19:50 Antibody Screen Negative 06/12/22 19:50 Crossmatch See Detail 06/12/22 19:50 Fiore/IV: Voiding Method Toilet Active Medications - Current Medications Current Medications: Generic Name Dose Route Start Last Admin Trade Name Freq PRN Reason Stop Dose Admin Acetaminophen 650 mg 06/12/22 22:25 Acetaminophen 325 Mg Tab PO Q4H PRN Pain MILD(1-3)/Fever >100.5/[place] Calcitriol 1 mcg 06/16/22 16:00 06/17/22 11:02 Calcitriol 0.5 Mcg Cap PO 1 mcg DAILY [facility]Y Administration Carvedilol 12.5 mg 06/13/22 10:00 06/17/22 11:03 Carvedilol 12.5 Mg Tab PO 12.5 mg BID [facility] Administration Cinacalcet 60 mg 06/13/22 10:00 06/17/22 11:02 Cinacalcet 30 Mg Tab PO 60 mg QDAY [facility] Administration Clopidogrel Bisulfate 75 mg 06/17/22 10:00 Clopidogrel 75 Mg Tab PO QDAY [facility] Epoetin Micha-epbx 10,000 unit 06/13/22 13:44 06/15/22 10:00 Epoetin Micha-Epbx 10,000 Unit/1 Ml Vial IV 10,000 unit SOPHIE PRN Administration hemodialysis Gabapentin 300 mg 06/13/22 08:00 06/17/22 11:02 Gabapentin 300 Mg Cap PO 300 mg TID [facility]Y Administration Labetalol HCl 200 mg 06/13/22 10:00 06/17/22 11:02 Labetalol 200 Mg Tab PO 200 mg BID [facility]Y Administration Losartan Potassium 50 mg 06/17/22 10:00 06/17/22 11:01 Losartan 50 Mg Tab PO 50 mg QDAY [facility] Administration Morphine Sulfate 2 mg 06/12/22 22:25 06/17/22 11:03 Morphine 2 Mg/1 Ml Inj IV 2 mg Q4H PRN Administration Pain, Moderate (4-6) Morphine Sulfate 4 mg 06/12/22 22:25 06/13/22 22:03 Morphine 4 Mg/1 Ml Inj IV 4 mg Q4H PRN Administration Pain , Severe (7-10) Nifedipine 90 mg 06/13/22 10:00 06/17/22 11:03 Nifedipine Xl 90 Mg Tab PO 90 mg QDAY [facility] Administration Ondansetron HCl 4 mg 06/12/22 22:25 06/14/22 17:31 Ondansetron 4 Mg/2 Ml Inj IV 4 mg Q8H PRN Administration Nausea And Vomiting Pantoprazole Sodium 40 mg 06/13/22 10:00 06/17/22 11:02 Pantoprazole 40 Mg Tab PO 40 mg QDAC [facility]Y Administration Polyethylene Glycol 17 gm 06/18/22 10:00 Polyethylene Glycol 3350 17 Gm Powder PO QDAY [facility] Sevelamer Carbonate 2,400 mg 06/16/22 16:30 06/17/22 11:02 Sevelamer Carbonate 800 Mg Tab PO 2,400 mg AC [facility]Y Administration Sodium Chloride 10 ml 06/13/22 10:00 06/17/22 11:03 Sodium Chloride 0.9% 10 Ml Flush Syringe IV 10 ml BID [facility] Administration Sodium Chloride 10 ml 06/12/22 22:25 Sodium Chloride 0.9% 10 Ml Flush Syringe IV PRN PRN LINE FLUSH Warfarin Sodium 5 mg 06/17/22 17:00 Warfarin 5 Mg Tab PO DAILY@1700 [facility] Protocol
[2022-06-17] MEDS ORDERED: CITALOPRAM 10 MG TAB PO SCH (13:00)
[2022-06-17] MEDS ORDERED: SODIUM CHLORIDE 0.9% 100 ML IV PRN (13:30)
--- NOTE | 2022-06-17 13:30 | Event Note ---
Patient not seen during rounds today as he was in procedure. Plan to continue HD MWF if stable. Note case management note- will transfer to in-center HD on discharge at [facility] under care of Dr. Rodriguez (follows at clinic for home HD currently).
[2022-06-17] MEDS ORDERED: WARFARIN 5 MG TAB PO NR (17:00)
[2022-06-17 19:51] LABS: INR 1.15 (0.87-1.13)
[2022-06-17] MEDS ORDERED: MELATONIN 5 MG TAB PO SCH (22:00)
[2022-06-18 07:49] VITALS: BP 138/74
--- NOTE | 2022-06-18 09:46 | Progress Note ---
Assessment and Plan Impression: * End stage renal disease (home hemodialysis followed by Dr. Sanford Rodriguez) * Symptomatic anemia secondary to lack of SHASHANK vs GI loss * Hypertension * Secondary hyperparathyroidism Plan: * Continue HD MWF or prn while house, no need for HD today per clinical assessment * Doppler of AVF patent, appreciate vascular input, s/p angioplasty * Epogen 10k TIW prn * Renal diet * Dose medications for renal function * Transfuse pRBC prn * Outpatient HD management per Dr. Rodriguez, [facility] [place]. Appreciate case management Subjective Date of service: 06/18/22 Principal diagnosis: Anemia Interval history: No acute issues noted, notes HD went well yesterday, no access issues. Wants to go home, states he spoke with his home HD unit and will continue home HD Objective - Exam Narrative Exam: General appearance: well-developed, well-nourished EENT: ATNC Respiratory: Present: Clear to Ascultation Cardiology: regular, S1S2, other (SABIHA AV access +bruit) Gastrointestinal: no tenderness, no distended Integumentary: warm and dry Neurologic: alert and oriented x3 Musculoskeletal: other (no edema) Psychiatric: cooperative - Vital Signs Vital signs: Vital Signs - 12hr 06/18/22 06/18/22 06/18/22 00:05 04:25 07:47 Temperature 97.6 F 98.0 F Pulse Rate 68 65 69 Respiratory 16 16 18 Rate Blood Pressure 138/74 Blood Pressure 128/60 122/56 [Right] O2 Sat by Pulse 97 94 97 Oximetry - Lab 06/16/22 06:01 06/17/22 05:32 Most recent lab results Calcium 8.6 mg/dL (8.4-10.2) 06/17/22 05:32 Phosphorus 3.50 mg/dL (2.5-4.5) 06/15/22 05:39 Magnesium 2.20 mg/dL (1.7-2.3) 06/15/22 05:39 Medications & Allergies - Medications Allergies/Adverse Reactions: Allergies Penicillins Allergy (Verified 03/08/22 17:44) Hives Home Medications: Home Medications Medication Instructions Recorded Confirmed Last Taken Type Cinacalcet HCl [Sensipar] 60 mg PO DAILY 03/09/22 06/14/22 03/07/22 History Diclofenac 1% [Diclofenac 1% 2 gm TP QDAY 03/09/22 06/14/22 Unknown History topical gel] NIFEdipine [Nifedipine ER] 90 mg PO DAILY 03/09/22 06/14/22 03/07/22 History Warfarin [Coumadin] 7.5 mg PO 5XW 03/09/22 06/14/22 03/07/22 History labetaloL [Labetalol 200mg TAB] 200 mg PO BID 03/09/22 06/14/22 Unknown History traMADoL [Ultram 50 MG tab] 50 mg PO Q6HR PRN 03/09/22 06/14/22 Unknown History Clopidogrel [Plavix] 75 mg PO QDAY tablet 03/10/22 06/14/22 Unknown Rx Gabapentin 300 mg PO TID capsule 03/10/22 06/14/22 Unknown Rx Sevelamer Carbonate [Renvela] 2,400 mg PO AC tablet 03/10/22 06/14/22 Unknown Rx Losartan [Cozaar] 50 mg PO QDAY 06/16/22 06/16/22 Unknown History Warfarin [Coumadin] 5 mg PO 2XW 06/16/22 06/16/22 Unknown History calcitrioL [Rocaltrol] 1 mcg PO DAILY 06/16/22 06/16/22 Unknown History Active Medications: Generic Name Dose Route Start Last Admin Trade Name Freq PRN Reason Stop Dose Admin Acetaminophen 650 mg 06/12/22 22:25 Acetaminophen 325 Mg Tab PO Q4H PRN Pain MILD(1-3)/Fever >100.5/[place] Calcitriol 1 mcg 06/16/22 16:00 06/17/22 11:02 Calcitriol 0.5 Mcg Cap PO 1 mcg DAILY [facility]Y Administration Carvedilol 12.5 mg 06/13/22 10:00 06/17/22 21:26 Carvedilol 12.5 Mg Tab PO 12.5 mg BID ROMY Administration Cinacalcet 60 mg 06/13/22 10:00 06/17/22 11:02 Cinacalcet 30 Mg Tab PO 60 mg QDAY [facility]Y Administration Citalopram Hydrobromide 10 mg 06/17/22 13:00 06/17/22 14:38 Citalopram 10 Mg Tab PO Not Given QDAY ROMY Clopidogrel Bisulfate 75 mg 06/17/22 10:00 06/17/22 11:02 Clopidogrel 75 Mg Tab PO 75 mg QDAY [facility] Administration Epoetin Micha-epbx 10,000 unit 06/13/22 13:44 06/15/22 10:00 Epoetin Micha-Epbx 10,000 Unit/1 Ml Vial IV 10,000 unit SOPHIE PRN Administration hemodialysis Gabapentin 300 mg 06/13/22 08:00 06/17/22 20:30 Gabapentin 300 Mg Cap PO 300 mg TID ROMY Administration Sodium Chloride 100 mls @ 999 mls/hr 06/17/22 13:30 Nacl 0.9% IV [place] PRN Hypotension Labetalol HCl 200 mg 06/13/22 10:00 06/17/22 21:26 Labetalol 200 Mg Tab PO 200 mg BID ROMY Administration Losartan Potassium 50 mg 06/17/22 10:00 06/17/22 11:01 Losartan 50 Mg Tab PO 50 mg QDAY [facility]Y Administration Melatonin 10 mg 06/17/22 22:00 06/17/22 21:26 Melatonin 5 Mg Tab PO 10 mg QHS ROMY Administration Morphine Sulfate 2 mg 06/12/22 22:25 06/17/22 18:55 Morphine 2 Mg/1 Ml Inj IV 2 mg Q4H PRN Administration Pain, Moderate (4-6) Morphine Sulfate 4 mg 06/12/22 22:25 06/13/22 22:03 Morphine 4 Mg/1 Ml Inj IV 4 mg Q4H PRN Administration Pain , Severe (7-10) Nifedipine 90 mg 06/13/22 10:00 06/17/22 11:03 Nifedipine Xl 90 Mg Tab PO 90 mg QDAY [facility]Y Administration Ondansetron HCl 4 mg 06/12/22 22:25 06/14/22 17:31 Ondansetron 4 Mg/2 Ml Inj IV 4 mg Q8H PRN Administration Nausea And Vomiting Pantoprazole Sodium 40 mg 06/13/22 10:00 06/17/22 11:02 Pantoprazole 40 Mg Tab PO 40 mg QDAC [facility]Y Administration Polyethylene Glycol 17 gm 06/18/22 10:00 Polyethylene Glycol 3350 17 Gm Powder PO QDAY [facility] Sevelamer Carbonate 2,400 mg 06/16/22 16:30 06/17/22 18:55 Sevelamer Carbonate 800 Mg Tab PO 2,400 mg AC [facility]Y Administration Sodium Chloride 10 ml 06/13/22 10:00 06/17/22 21:28 Sodium Chloride 0.9% 10 Ml Flush Syringe IV 10 ml BID [facility]Y Administration Sodium Chloride 10 ml 06/12/22 22:25 Sodium Chloride 0.9% 10 Ml Flush Syringe IV PRN PRN LINE FLUSH Warfarin Sodium 5 mg 06/17/22 17:00 06/17/22 18:55 Warfarin 5 Mg Tab PO 06/18/22 16:59 5 mg ONCE@1700 NR Administration Protocol
[2022-06-18] MEDS ORDERED: POLYETHYLENE GLYCOL 3350 17 GM POWDER PO SCH (10:00)
--- NOTE | 2022-06-18 10:30 | Discharge Summary ---
Providers - Providers Date of Admission: 06/12/22 22:25 Date of discharge: 06/18/22 Attending physician: CHARLENE TREJO MD 06/12/22 20:06 Consult to Physician [CONS] Urgent Comment: Consulting Provider: EVITA MACHADO Physician Instructions: Reason For Exam: Reports dark stool, on Coumadin, question GI bleed Consult to Physician [CONS] Urgent Comment: Consulting Provider: CARMEN ERWIN Physician Instructions: Reason For Exam: esrd 06/13/22 14:00 Consult Geriatric-Psych [CONS] Routine Consulting Provider: Reason For Exam: Depression evaluation Physical Therapy Evaluation and Treat [CONS] Routine Comment: Reason For Exam: Patient described decreased mobility. 06/14/22 13:35 Consult to Physician [CONS] Routine Comment: Consulting Provider: SEJAL PENNINGTON Physician Instructions: Reason For Exam: Malfunctioning LUE AV fistula 06/17/22 11:59 Consult to Case Management [CONS] Routine Services Needed at Discharge: Other Additional Physician Instructions: outpatient dialysis, patient and caregiver not comfortable with home HD Hospitalization Reason for admission: Melena, symptomatic anemia Condition: Good Hospital course: Patient is a 62-year-old man with history of ESRD status post renal transplant on home dialysis, triple vessel CABG, PAD, CVA on chronic warfarin therapy who presented with melena, fatigue and malfunction of his AV fistula. Patient was found to have symptomatic anemia. He received 1 unit of packed red cells. CT of the abdomen pelvis showed mild duodenal wall thickening with periduodenal inflammation suggesting duodenitis, pulmonary edema. Vascular surgery performed angioplasty of AV fistula with coiling. Patient was able to be dialyzed afterwards. Gastroenterology was consulted. EGD and colonoscopy to was performed. No active bleeding was seen, however 1 polyp was found as well as internal hemorrhoids. Warfarin was resumed at home dose. Patient refused INR checks and opted to return home to resume home hemodialysis due to being able to check his INR's at home. Disposition: 01 HOME / SELF CARE / HOMELESS Final Discharge Diagnosis (Prints w/discharge instructions): GI bleed ruled out. Internal hemorrhoids. Acute on chronic anemia of chronic disease. ESRD on hemodialysis. Volume overload. Uremia. Malfunctioning left upper extremity AVfistula. Hypertension. History of ischemic CVA. History of CABG. Depression Time spent for discharge: 35 minutes Core Measure Documentation - Palliative Care Palliative Care/ Comfort Measures: Not Applicable - Core Measures Any of the following diagnoses?: history only Exam - Physical Exam Narrative exam: GENERAL: Well-developed well-nourished. In no acute distress. HEENT: Normocephalic. Atraumatic. CHEST/LUNGS: CTAB on room air HEART/CARDIOVASCULAR: RRR. No murmur, rubs or gallops appreciated. ABDOMEN: +BS. NT/ND. NEURO: No focal motor deficit. Follows all commands. MUSCULOSKELETAL: No joint effusion EXTREMITIES: LUE AVF with thrill. No cyanosis, clubbing or edema. PSYCH: Cooperative. - Constitutional Vitals: Temp Pulse Resp BP Pulse Ox 98.0 F 69 18 138/74 97 06/18/22 07:47 06/18/22 07:47 06/18/22 07:47 06/18/22 07:47 06/18/22 07:47 Plan Care Plan Goals: Please follow-up with your Rn Ent in regards to whether or not you want to continue with home HD vs outpatient. Please follow-up with Dr. Machado, the network intern within the next 2 weeks. If you experience any further bleeding episodes, please contact your PCP. Please continue to check your INR and appropriately dose warfarin at home. Follow up with: BEVERLY SONI [Other] - 3-5 Days Forms: Warfarin Discharge Instruction Prescriptions: Melatonin [Melatonin 5MG CAP] 5 mg PO QHS #30 cap Citalopram [celeXA] 10 mg PO QDAY 30 Days #30 tablet carvediloL [Coreg] 12.5 mg PO BID 30 Days #60 tablet Pantoprazole [Protonix TAB] 40 mg PO QDAC 90 Days #90 tablet
[2022-06-18] MEDS: CALCITRIOL 0.5 MCG CAP PO SCH (10:38)
[2022-06-18] MEDS: CINACALCET 30 MG TAB PO SCH (10:39)
[2022-06-18] MEDS: carvediloL 12.5 MG TAB PO SCH (10:39)
[2022-06-18] MEDS: SEVELAMER CARBONATE 800 MG TAB PO SCH (10:40)
[2022-06-18] MEDS: CLOPIDOGREL 75 MG TAB PO SCH (10:41)
[2022-06-18] MEDS: LOSARTAN 50 MG TAB PO SCH (10:41)
--- NOTE | 2022-06-18 10:59 | Progress Note ---
Subjective - Reason for Consult Consult date: 06/18/22 Reason for consult: depression - Chief Complaint Chief complaint: The patient was seen today. He reports feeling hopeful and optimistic. He says he knows what he has to do and feels like he has to do it on his own. The patient says "I'm independent. Always have been." He denies SI/HI. He says "I never felt like that." He denies hallucinations. ROS: Constitutional: Negative for weight loss ENT: Negative for stridor Respiratory: Negative for cough or hemoptysis All other systems reviewed and are negative MENTAL STATUS General Appearance and Behavior: age appropriate, calm, cooperative, polite Psychomotor Behavior: within normal limits Mood: depressed Affect and affective range: congruent with stated mood Thought Process: goal oriented Thought Content: within reality Speech: Normal volume and Regular rate and rhythm Suicidal Ideation: passive Homicidal Ideation: Denies Hallucinations: Denies Delusions: None elicited Impulse Control: Normal Insight and Judgment: Limited Memory: Limited Attention: Attentive Orientation: alert/oriented Assessment Major Depressive Disorder Treatment Plan Celexa 10mg po daily Melatonin 5mg po qhs Medical: per primary Sitter: defer to primary Disposition: Do not recommend acute psychiatric inpatient treatment Will sign off. Thanks. Case staffed by Dr. Tate Mental Status Exam - Vital signs Last Vital Signs Temp 98.0 F 06/18/22 07:47 Pulse 62 06/18/22 10:41 Resp 18 06/18/22 07:47 BP 138/74 06/18/22 10:41 Pulse Ox 97 06/18/22 07:47
--- NOTE | 2022-06-18 15:11 | Post Anesthesia Evaluation ---
- Post Anesthesia Evaluation Patient Participated: Yes Airway Patent: Yes Stable Respiratory Function: Yes Nausea/Vomiting: No Temp > 96.8F: Yes Pain Manageable: Yes Adequeate Hydration: Yes Anesthesia Complications: No
== END 2022-06-18 12:00 | disposition home or self-care (01) | DRG 252 ==
LOC: ED 16:40 → 4A 22:25
PROVIDERS: ADMIT Hospitalist; ATTEND Student in an Organized Health Care Education/Training Program
PROC: 30233N1 Transfusion of Nonautologous Red Blood Cells into Peripheral Vein, Percutaneous Approach (ICD-10-PCS; 2022-06-13)
PROC: 5A1D70Z Performance of Urinary Filtration, Intermittent, Less than 6 Hours Per Day (ICD-10-PCS; 2022-06-13)
PROC: 5A1D70Z Performance of Urinary Filtration, Intermittent, Less than 6 Hours Per Day (ICD-10-PCS; 2022-06-15)
PROC: 057F3ZZ Dilation of Left Cephalic Vein, Percutaneous Approach (ICD-10-PCS; 2022-06-16)
PROC: 05LF3DZ Occlusion of Left Cephalic Vein with Intraluminal Device, Percutaneous Approach (ICD-10-PCS; 2022-06-16)
PROC: B51W1ZZ Fluoroscopy of Dialysis Shunt/Fistula using Low Osmolar Contrast (ICD-10-PCS; 2022-06-16)
PROC: 0DB58ZX Excision of Esophagus, Via Natural or Artificial Opening Endoscopic, Diagnostic (ICD-10-PCS; principal; 2022-06-17)
PROC: 5A1D70Z Performance of Urinary Filtration, Intermittent, Less than 6 Hours Per Day (ICD-10-PCS; 2022-06-17)
PROC: 0DBL8ZZ Excision of Transverse Colon, Via Natural or Artificial Opening Endoscopic (ICD-10-PCS; 2022-06-17)
DX: T82.898A Other specified complication of vascular prosthetic devices, implants and grafts, initial encounter (principal); N18.6 End stage renal disease; I12.0 Hypertensive chronic kidney disease with stage 5 chronic kidney disease or end stage renal disease; N25.81 Secondary hyperparathyroidism of renal origin; Z68.43 Body mass index [BMI] 50.0-59.9, adult; Z99.2 Dependence on renal dialysis; E11.22 Type 2 diabetes mellitus with diabetic chronic kidney disease; D64.9 Anemia, unspecified; E87.70 Fluid overload, unspecified; E66.01 Morbid (severe) obesity due to excess calories; Z71.3 Dietary counseling and surveillance; Y83.8 Other surgical procedures as the cause of abnormal reaction of the patient, or of later complication, without mention of misadventure at the time of the procedure; Y92.89 Other specified places as the place of occurrence of the external cause; K44.9 Diaphragmatic hernia without obstruction or gangrene; K57.90 Diverticulosis of intestine, part unspecified, without perforation or abscess without bleeding; K64.8 Other hemorrhoids; K63.5 Polyp of colon; F32.9 Major depressive disorder, single episode, unspecified; Z82.49 Family history of ischemic heart disease and other diseases of the circulatory system; I25.2 Old myocardial infarction; Z79.899 Other long term (current) drug therapy; Z79.01 Long term (current) use of anticoagulants; Z86.73 Personal history of transient ischemic attack (TIA), and cerebral infarction without residual deficits; Z88.0 Allergy status to penicillin; Z95.1 Presence of aortocoronary bypass graft
CPT/HCPCS: 36415; 36902; 36907; 37241; 71045; 74176; 80048; 80053; 80074; 82270; 83735; 83880; 84100; 85025; 85027; 85610; 85730; 86850; 86900; 86901; 86920; 87641; 88305; 93005; 93990; G0378; J3490; C1725; C1751; C1769; C1887; C1894; C9113; J0885; J1644; J1940; J2250; J2270; J2405; J2597; J2704; J3010; J7030; J7040; J7050; P9016; Q9967